=== PATIENT | male | born 1985 | race Caucasian/White ===

== ENCOUNTER → 2017-06-13 | Outpatient (REF) | payer MEDICARE ==
[2017-06-13 19:05] LABS: ALBUMIN 4.1 GM/DL (3.2-5.2); ALBUMIN/GLOBULIN RATIO 0.95 (1.00-1.93); ALKALINE PHOSPHATASE 121 U/L (45-117); ALT/SGPT 41 U/L (12-78); ANION GAP 7 MEQ/L (8-16); AST/SGOT 18 U/L (15-37); BASO % 0.5 % (0.0-1.0); BILIRUBIN,TOTAL 0.4 MG/DL (0.2-1.0); BLOOD UREA NITROGEN 12 MG/DL (7-18); CALCIUM LEVEL 9.3 MG/DL (8.5-10.1); CARBON DIOXIDE LEVEL 28 MEQ/L (21-32); CHLORIDE LEVEL 102 MEQ/L (98-107); CREATININE FOR GFR 0.74 MG/DL (0.70-1.30); EOS # 0.1 K/mm3 (0.0-0.50); EOS % 1.1 % (0.0-3.0); GLOMERULAR FILTRATION RATE > 60.0 (>60); GLUCOSE, FASTING 104 MG/DL (70-105); LARGE UNSTAINED CELL # 0.1 K/mm3 (0.0-0.4); LARGE UNSTAINED CELL % 1.3 % (0.0-4.0); LYMPH # 2.3 K/mm3 (1.5-4.5); MEAN CORPUSCULAR HEMOGLOBIN 32.2 pg (27.0-33.0); MEAN CORPUSCULAR HGB CONC 34.9 g/dl (32.0-36.5); MEAN CORPUSCULAR VOLUME 92.4 fl (80.0-96.0); MONO # 0.5 K/mm3 (0.0-0.8); NEUTROPHILS # 4.7 K/mm3 (1.8-7.7); NEUTROPHILS % 62.1 % (36.0-66.0); PLATELET COUNT, AUTOMATED 315 k/mm3 (150-450); POTASSIUM SERUM 4.5 MEQ/L (3.5-5.1); RED CELL DISTRIBUTION WIDTH 12.1 % (11.5-14.5); SODIUM LEVEL 137 MEQ/L (136-145); TOTAL PROTEIN 8.4 GM/DL (6.4-8.2); WHITE BLOOD COUNT 7.6 K/mm3 (4.0-10.0)
== END ==
LOC: M SFHCCAPE 07:05 → M LABNEURO 07:05
PROVIDERS: ATTEND Psychiatry & Neurology Neurology
DX: R56.9 Unspecified convulsions (principal); Z51.81 Encounter for therapeutic drug level monitoring; Z79.899 Other long term (current) drug therapy

== ENCOUNTER → 2017-12-19 | Outpatient (REF) | payer MEDICARE, MEDICAID ==
[2017-12-19 19:05] LABS: ALBUMIN 4.4 GM/DL (3.2-5.2); ALBUMIN/GLOBULIN RATIO 1.07 (1.00-1.93); ALKALINE PHOSPHATASE 107 U/L (45-117); ALT/SGPT 41 U/L (12-78); ANION GAP 6 MEQ/L (8-16); AST/SGOT 15 U/L (7-37); BILIRUBIN,TOTAL 0.2 MG/DL (0.2-1.0); BLOOD UREA NITROGEN 12 MG/DL (7-18); CARBON DIOXIDE LEVEL 30 MEQ/L (21-32); CHLORIDE LEVEL 102 MEQ/L (98-107); CREATININE FOR GFR 0.71 MG/DL (0.70-1.30); GLOMERULAR FILTRATION RATE > 60.0 (>60); GLUCOSE, FASTING 102 MG/DL (70-100); PHENYTOIN (DILANTIN) 11.1 UG/ML (10.0-20.0); POTASSIUM SERUM 4.3 MEQ/L (3.5-5.1); SODIUM LEVEL 138 MEQ/L (136-145); TOTAL PROTEIN 8.5 GM/DL (6.4-8.2)
[2017-12-19 19:22] LABS: BASO % 0.4 % (0.0-1.0); EOS # 0.1 10^3/uL (0.0-0.50); EOS % 1.2 % (0.0-3.0); HEMATOCRIT 46.8 % (42.0-52.0); HEMOGLOBIN 15.7 g/dl (14.0-18.0); IMMATURE GRANULOCYTE % 0.2 % (0-3.0); LYMPH # 3.1 10^3/uL (1.5-4.5); MEAN CORPUSCULAR HEMOGLOBIN 31.4 pg (27.0-33.0); MEAN CORPUSCULAR HGB CONC 33.5 g/dl (32.0-36.5); MEAN CORPUSCULAR VOLUME 93.6 fl (80.0-96.0); MONO # 0.9 10^3/uL (0.0-0.8); MONO % 10.4 % (0.0-5.0); NEUTROPHILS # 4.2 10^3/uL (1.8-7.7); NEUTROPHILS % 50.8 % (36.0-66.0); PLATELET COUNT, AUTOMATED 313 10^3/uL (150-450); RED CELL DISTRIBUTION WIDTH 11.8 % (11.5-14.5); WHITE BLOOD COUNT 8.3 10^3/uL (4.0-10.0)
[2017-12-23 00:07] LABS: LEVETIRACETAM (KEPPRA) 26.2 ug/mL (10.0-40.0)
== END ==
LOC: M LABNEURO 13:41
DX: R56.9 Unspecified convulsions (principal)
CPT/HCPCS: 80185

== ENCOUNTER → 2018-07-20 | Outpatient (REF) | payer MEDICARE ==
[2018-07-20 16:43] LABS: BASO % 0.4 % (0.0-1.0); EOS # 0.1 10^3/uL (0.0-0.50); EOS % 1.1 % (0.0-3.0); HEMATOCRIT 46.6 % (42.0-52.0); HEMOGLOBIN 15.7 g/dl (13.5-17.5); IMMATURE GRANULOCYTE % 0.3 % (0-3.0); LYMPH # 2.8 10^3/uL (1.5-4.5); LYMPH % 34.4 % (24.0-44.0); MEAN CORPUSCULAR HEMOGLOBIN 31.5 pg (27.0-33.0); MEAN CORPUSCULAR HGB CONC 33.7 g/dl (32.0-36.5); MEAN CORPUSCULAR VOLUME 93.6 fl (80.0-96.0); MONO # 0.9 10^3/uL (0.0-0.8); MONO % 10.9 % (0.0-5.0); NEUTROPHILS # 4.2 10^3/uL (1.8-7.7); NEUTROPHILS % 52.9 % (36.0-66.0); PLATELET COUNT, AUTOMATED 315 10^3/uL (150-450); RED BLOOD COUNT 4.98 10^6/uL (4.30-6.10); RED CELL DISTRIBUTION WIDTH 11.6 % (11.5-14.5)
[2018-07-20 16:50] LABS: ALBUMIN 4.4 GM/DL (3.2-5.2); ALKALINE PHOSPHATASE 129 U/L (45-117); ALT/SGPT 54 U/L (12-78); ANION GAP 6 MEQ/L (8-16); AST/SGOT 22 U/L (7-37); BILIRUBIN,TOTAL 0.2 MG/DL (0.2-1.0); BLOOD UREA NITROGEN 8 MG/DL (7-18); CALCIUM LEVEL 9.3 MG/DL (8.5-10.1); CARBON DIOXIDE LEVEL 30 MEQ/L (21-32); CHLORIDE LEVEL 102 MEQ/L (98-107); CREATININE FOR GFR 0.68 MG/DL (0.70-1.30); GLOMERULAR FILTRATION RATE > 60.0 (>60); GLUCOSE, FASTING 84 MG/DL (70-100); PHENYTOIN (DILANTIN) 11.7 UG/ML (10.0-20.0); POTASSIUM SERUM 4.7 MEQ/L (3.5-5.1); SODIUM LEVEL 138 MEQ/L (136-145); TOTAL PROTEIN 8.8 GM/DL (6.4-8.2)
[2018-07-24 00:07] LABS: LEVETIRACETAM (KEPPRA) 26.2 ug/mL (10.0-40.0)
== END ==
LOC: M SFHCCLAY 12:31
DX: G40.909 Epilepsy, unspecified, not intractable, without status epilepticus (principal)
CPT/HCPCS: 80185

== ENCOUNTER → 2018-11-08 | Outpatient (REF) | payer MEDICARE ==
[2018-11-08 18:19] LABS: BASO % 0.3 % (0.0-1.0); EOS # 0.1 10^3/uL (0.0-0.50); EOS % 1.5 % (0.0-3.0); HEMATOCRIT 45.9 % (42.0-52.0); HEMOGLOBIN 15.3 g/dl (13.5-17.5); LYMPH # 2.5 10^3/uL (1.5-4.5); LYMPH % 36.2 % (24.0-44.0); MEAN CORPUSCULAR HEMOGLOBIN 31.8 pg (27.0-33.0); MEAN CORPUSCULAR HGB CONC 33.3 g/dl (32.0-36.5); MEAN CORPUSCULAR VOLUME 95.4 fl (80.0-96.0); MONO # 0.5 10^3/uL (0.0-0.8); MONO % 7.6 % (0.0-5.0); NEUTROPHILS # 3.7 10^3/uL (1.8-7.7); PLATELET COUNT, AUTOMATED 275 10^3/uL (150-450); RED BLOOD COUNT 4.81 10^6/uL (4.30-6.10); WHITE BLOOD COUNT 6.8 10^3/uL (4.0-10.0)
== END ==
LOC: M LABDRWCV 16:43
PROVIDERS: ATTEND Physician Assistant Medical
DX: R56.9 Unspecified convulsions (principal); Z51.81 Encounter for therapeutic drug level monitoring

== ENCOUNTER → 2019-06-12 | Outpatient (REF) | payer MEDICARE, MEDICAID | LOC: M LABDRWCV 16:17 | PROVIDERS: ATTEND Physician Assistant Medical | DX: G40.909 Epilepsy, unspecified, not intractable, without status epilepticus (principal); Z51.81 Encounter for therapeutic drug level monitoring ==

== ENCOUNTER → 2019-07-02 | Outpatient (REF) | payer MEDICARE, MEDICAID | LOC: M LABDRWCV 16:10 | PROVIDERS: ATTEND Physician Assistant Medical | DX: G40.909 Epilepsy, unspecified, not intractable, without status epilepticus (principal) ==

== ENCOUNTER → 2019-08-06 | Outpatient (REF) | payer MEDICARE, MEDICAID | LOC: M LABDRWCV 16:16 | PROVIDERS: ATTEND Physician Assistant Medical | DX: G40.909 Epilepsy, unspecified, not intractable, without status epilepticus (principal); Z51.81 Encounter for therapeutic drug level monitoring ==

== ENCOUNTER → 2019-11-27 | Outpatient (REF) | payer MEDICARE, MEDICAID | LOC: M LABDRWCV 18:12 → M LAB REF 18:12 | PROVIDERS: ATTEND Physician Assistant Medical | DX: R56.9 Unspecified convulsions (principal); Z51.81 Encounter for therapeutic drug level monitoring ==

== ENCOUNTER 2020-04-28 11:34 | Emergency (ER) | payer MEDICARE, MEDICAID ==
[~2020-04-28] VITALS: Ht 165.1 cm; Wt 84.8 kg
[2020-04-28] MEDS ORDERED: NS 1,000 ML IV SCH (12:09)
[2020-04-28 12:27] LABS: PHENYTOIN (DILANTIN) 12.1 UG/ML (10.0-20.0)
[2020-04-28] MEDS ORDERED: PHEN100C PO (12:32)
[2020-04-28] MEDS ORDERED: KEPP750T3 PO (12:32)
[2020-04-28] MEDS ORDERED: levETIRAcetam INJection 1,000 MG in D5W 100 ML IV ONE (13:15)
[2020-04-28 13:28] LABS: BASO % 0.2 % (0.0-1.0); EOS % 0.2 % (0.0-3.0); HEMATOCRIT 49.5 % (42.0-52.0); HEMOGLOBIN 16.6 g/dl (13.5-17.5); LYMPH % 16.7 % (24.0-44.0); MEAN CORPUSCULAR HEMOGLOBIN 31.1 pg (27.0-33.0); MEAN CORPUSCULAR HGB CONC 33.5 g/dl (32.0-36.5); MEAN CORPUSCULAR VOLUME 92.7 fl (80.0-96.0); MONO # 0.8 10^3/uL (0.0-0.8); MONO % 6.7 % (0.0-5.0); NEUTROPHILS # 9.1 10^3/uL (1.5-8.5); NEUTROPHILS % 74.7 % (36.0-66.0); PLATELET COUNT, AUTOMATED 318 10^3/uL (150-450); RED BLOOD COUNT 5.34 10^6/uL (4.30-6.10); WHITE BLOOD COUNT 12.2 10^3/uL (4.0-10.0)
[2020-04-28] MEDS ORDERED: PHENYTOIN ER 100 MG CAP PO ONE (13:30)
[2020-04-28 13:47] LABS: ALBUMIN 4.3 GM/DL (3.2-5.2); ALT/SGPT 50 U/L (12-78); BILIRUBIN,DIRECT 0.1 MG/DL (0.0-0.2); BILIRUBIN,TOTAL 0.2 MG/DL (0.2-1.0); BLOOD UREA NITROGEN 13 MG/DL (7-18); CALCIUM LEVEL 9.9 MG/DL (8.5-10.1); CARBON DIOXIDE LEVEL 21 MEQ/L (21-32); CHLORIDE LEVEL 103 MEQ/L (98-107); CREATININE FOR GFR 0.98 MG/DL (0.70-1.30); GLOMERULAR FILTRATION RATE > 60.0 (>60); GLUCOSE, FASTING 158 MG/DL (70-100); PHOSPHORUS LEVEL 2.8 MG/DL (2.5-4.9); POTASSIUM SERUM 4.4 MEQ/L (3.5-5.1); SODIUM LEVEL 138 MEQ/L (136-145); TOTAL PROTEIN 9.1 GM/DL (6.4-8.2)
--- NOTE | 2020-04-28 14:51 | REP ---
REASON: Status post seizure. COMPARISON: None. FINDINGS: The superior mediastinal structures are midline. The cardiac silhouette is unremarkable in size, shape, and position. The diaphragmatic surfaces of the lungs are regular, and the costophrenic angles are clear. The pulmonary asif are clear. The imaged osseous structures are intact. IMPRESSION: There is no acute cardiopulmonary disease. Electronically Signed by Luis Ahuja DO 04/28/2020 04:06 P
[2020-04-28 15:22] LABS: AMPHETAMINES LEVEL URINE NEGATIVE (NEGATIVE); BARBITURATES URINE NEGATIVE (NEGATIVE); BENZODIAZEPINES URINE NEGATIVE (NEGATIVE); CANNABINOIDS URINE NEGATIVE (NEGATIVE); COCAINE METABOLITE URINE NEGATIVE (NEGATIVE); METHADONE URINE NEGATIVE (NEGATIVE); OPIATES URINE NEGATIVE (NEGATIVE); PHENCYCLIDINE URINE NEGATIVE (NEGATIVE)
[2020-04-28 15:45] VITALS: BP 115/76
--- NOTE | 2020-04-28 20:59 | ECGEPIP ---
[facility] - ED Test Date: 2020-04-28 Pat Name: ANNAMARIE JARAMILLO Department: Room: - Gender: Male Information Management Officer: shaylee : 1985 Requested By: EPHRAIM Hernández Order Number: [id number] Reading MD: Anisa Harrison Measurements Intervals [place] Rate: 114 P: 26 MA: 175 QRS: -7 QRSD: 145 T: 172 QT: 355 QTc: 489 Interpretive Statements SINUS TACHYCARDIA WITH OCCASIONAL SUPRAVENTRICULAR PREMATURE COMPLEXES POSSIBLE LEFT ATRIAL ENLARGEMENT LEFT BUNDLE BRANCH BLOCK NO PRIOR Electronically Signed on 04-28-2020 20:58:58 EDT by Anisa Harrison
== END 2020-04-28 15:57 | disposition home or self-care (01) ==
LOC: M ED 11:34 → EDBD 11:34 → M ED 15:57
DX: G40.909 Epilepsy, unspecified, not intractable, without status epilepticus (principal); I44.7 Left bundle-branch block, unspecified; Z79.899 Other long term (current) drug therapy; Z88.0 Allergy status to penicillin
CPT/HCPCS: 36415; 71046; 80047; 80048; 80076; 80180; 80185; 80307; 81001; 83735; 84100; 85025; 93005; 94760; 96361; 96365; 99285; J1953

== ENCOUNTER → 2020-05-11 | Outpatient (REF) | payer MEDICARE, MEDICAID ==
[~2020-05-11] MED LIST: KEPP750T3 PO; PHEN100C PO
== END ==
LOC: M LABDRAWC 12:28
PROVIDERS: ATTEND Physician Assistant Medical
DX: G40.89 Other seizures (principal)

== ENCOUNTER → 2020-07-06 | Outpatient (REF) | payer MEDICARE, MEDICAID | LOC: M LABDRAWC 16:13 | PROVIDERS: ATTEND Physician Assistant Medical | DX: G40.89 Other seizures (principal) ==

== ENCOUNTER → 2020-10-23 | Outpatient (REF) | payer MEDICARE, MEDICAID | LOC: M LABDRAWC 15:42 | PROVIDERS: ATTEND Physician Assistant Medical | DX: R56.9 Unspecified convulsions (principal) ==

== ENCOUNTER → 2020-11-04 | Outpatient (CLI) | payer SELFPAY | LOC: M LABSMTC 10:53 | PROVIDERS: ATTEND Pediatrics | DX: Z20.822 Contact with and (suspected) exposure to COVID-19 (principal) ==

== ENCOUNTER → 2020-11-18 | Outpatient (REF) | payer MEDICARE, MEDICAID ==
[2020-11-18 16:39] LABS: BASO % 0.4 % (0.0-1.0); EOS # 0.1 10^3/uL (0.0-0.5); EOS % 0.8 % (0.0-3.0); HEMATOCRIT 47.6 % (42.0-52.0); HEMOGLOBIN 15.6 g/dl (13.5-17.5); LYMPH # 2.8 10^3/uL (1.5-5.0); LYMPH % 30.6 % (24.0-44.0); MEAN CORPUSCULAR HEMOGLOBIN 30.8 pg (27.0-33.0); MEAN CORPUSCULAR HGB CONC 32.8 g/dl (32.0-36.5); MEAN CORPUSCULAR VOLUME 94.1 fl (80.0-96.0); MONO # 0.9 10^3/uL (0.0-0.8); MONO % 9.5 % (0.0-5.0); NEUTROPHILS # 5.3 10^3/uL (1.5-8.5); NEUTROPHILS % 58.5 % (36.0-66.0); PLATELET COUNT, AUTOMATED 292 10^3/uL (150-450); RED BLOOD COUNT 5.06 10^6/uL (4.30-6.10); WHITE BLOOD COUNT 9.1 10^3/uL (4.0-10.0)
[2020-11-18 17:27] LABS: ALBUMIN 4.2 GM/DL (3.2-5.2); ALT/SGPT 49 U/L (12-78); BILIRUBIN,TOTAL 0.3 MG/DL (0.2-1.0); BLOOD UREA NITROGEN 13 MG/DL (7-18); CALCIUM LEVEL 9.5 MG/DL (8.5-10.1); CARBON DIOXIDE LEVEL 30 MEQ/L (21-32); CHLORIDE LEVEL 101 MEQ/L (98-107); CHOLESTEROL LEVEL 206 MG/DL (<200); CHOLESTEROL RISK RATIO 3.551 (<5); CREATININE FOR GFR 0.73 MG/DL (0.70-1.30); FREE T4 0.69 NG/DL (0.76-1.46); GLOMERULAR FILTRATION RATE > 60.0 (>60); GLUCOSE, FASTING 131 MG/DL (70-100); HDL CHOLESTEROL 58 MG/DL (>40); LDL CHOLESTEROL 102 MG/DL (<100); NON-HDL-C 148 MG/DL; POTASSIUM SERUM 4.3 MEQ/L (3.5-5.1); SODIUM LEVEL 136 MEQ/L (136-145); TOTAL PROTEIN 8.5 GM/DL (6.4-8.2); TRIGLYCERIDES LEVEL 229 MG/DL (<150)
== END ==
LOC: M SFHCCLAY 11:21
PROVIDERS: ATTEND Nurse Practitioner Family
DX: F84.0 Autistic disorder (principal); G40.909 Epilepsy, unspecified, not intractable, without status epilepticus; Z13.220 Encounter for screening for lipoid disorders; Z79.899 Other long term (current) drug therapy
CPT/HCPCS: 36415; 80053; 80061; 80185; 84439; 84443; 85025; G0463

== ENCOUNTER → 2020-11-18 | Outpatient (REF) | payer MEDICARE, MEDICAID | LOC: M LABDRAWC 15:36 | PROVIDERS: ATTEND Physician Assistant Medical | DX: R56.9 Unspecified convulsions (principal); Z51.81 Encounter for therapeutic drug level monitoring ==

== ENCOUNTER → 2021-04-09 | Outpatient (REF) | payer MEDICARE, MEDICAID ==
[2021-04-09 16:23] LABS: BASO % 0.3 % (0.0-1.0); EOS # 0.1 10^3/uL (0.0-0.5); EOS % 0.6 % (0.0-3.0); HEMATOCRIT 45.7 % (42.0-52.0); HEMOGLOBIN 14.9 g/dl (13.5-17.5); LYMPH # 2.6 10^3/uL (1.5-5.0); LYMPH % 26.1 % (24.0-44.0); MEAN CORPUSCULAR HEMOGLOBIN 31.2 pg (27.0-33.0); MEAN CORPUSCULAR HGB CONC 32.6 g/dl (32.0-36.5); MEAN CORPUSCULAR VOLUME 95.6 fl (80.0-96.0); MONO # 0.8 10^3/uL (0.0-0.8); NEUTROPHILS # 6.6 10^3/uL (1.5-8.5); NEUTROPHILS % 64.7 % (36.0-66.0); PLATELET COUNT, AUTOMATED 296 10^3/uL (150-450); RED BLOOD COUNT 4.78 10^6/uL (4.30-6.10); WHITE BLOOD COUNT 10.1 10^3/uL (4.0-10.0)
[2021-04-09 16:59] LABS: ALBUMIN 3.9 GM/DL (3.2-5.2); ALT/SGPT 40 U/L (12-78); BILIRUBIN,TOTAL 0.3 MG/DL (0.2-1.0); BLOOD UREA NITROGEN 11 MG/DL (7-18); CALCIUM LEVEL 8.9 MG/DL (8.5-10.1); CARBON DIOXIDE LEVEL 31 MEQ/L (21-32); CHLORIDE LEVEL 102 MEQ/L (98-107); CREATININE FOR GFR 0.58 MG/DL (0.70-1.30); GLOMERULAR FILTRATION RATE > 60.0 (>60); GLUCOSE, FASTING 146 MG/DL (70-100); PHENYTOIN (DILANTIN) 11.8 UG/ML (10.0-20.0); POTASSIUM SERUM 4.1 MEQ/L (3.5-5.1); SODIUM LEVEL 137 MEQ/L (136-145); TOTAL PROTEIN 8.1 GM/DL (6.4-8.2)
== END ==
LOC: M LABDRAWC 16:04
PROVIDERS: ATTEND Physician Assistant Medical
DX: G40.909 Epilepsy, unspecified, not intractable, without status epilepticus (principal); Z79.899 Other long term (current) drug therapy

== ENCOUNTER → 2021-06-11 | Outpatient (REF) | payer MEDICARE, MEDICAID | LOC: M LABDRAWC 11:36 | PROVIDERS: ATTEND Physician Assistant Medical | DX: G40.909 Epilepsy, unspecified, not intractable, without status epilepticus (principal) ==

== ENCOUNTER 2021-08-04 14:12 | Emergency (ER) | payer MEDICARE, MEDICAID ==
[~2021-08-04] VITALS: Ht 165.1 cm; Wt 84.8 kg
--- OUTSIDE RECORDS SUMMARY | 2021-08-04 14:19 | CCD | Continuity of Care Document ---
Author Author Bishnu SHIELDS P.A.-C. Organization Unknown Address [address] [place] [address] Phone [phone] Care Team Providers Care Vfx Artist Name Role Phone Jan Nails M.D. AUTM [phone] Catherine Sweeney-C AUTM Problems Active Problems Provider Date Seizure Camacho Donaldson M.D. Onset: 02/18/2016 Social History Type Date Description Comments Sex Unknown Tobacco Use Start: Unknown Patient has never smoked Allergies, Adverse Reactions, Alerts Active Allergies Criticality Reaction | Severity Comments Date Penicillin Unable to assess criticality 02/18/2016 Medications Active Medications SIG Qnty Indications Ordering Provide r Date Keppra XR 750mg Tablets ER 24HR take two tablets by mouth twice a day 28maynor Velázquez M.D. Phenytoin Sodium Extended 100mg Ca psules 3 by mouth twice a day 42little Velázquez M.D. 04/25/2021 Phenytoin Sodium Extended 100mg Ca psules 3 caps po bid, new directions 180little Velázquez M.D. 09/2018 Keppra XR 750mg Tablets ER 24HR take two tablets by mouth twice a day 120maynor Velázquez M.D. Immunizations Description No Information Available Vital Signs Date Vital Result Comment 04/15/2021 5:42am BP Systolic 110 mmHg BP Diastolic 80 mmHg Heart Rate 68 /min Respiratory Rate 16 /min 03/29/2021 6:22am BP Systolic 110 mmHg BP Diastolic 60 mmHg Heart Rate 64 /min Respiratory Rate 16 /min Results Test Acquired Date Facility Test Result H/L Range Note Laboratory test finding 06/11/2021 [facility] Phenytoin (Dilantin) 18.8 UG/ML Normal 10.0-20.0 Levetiracetam (Keppra) 26.1 ug/mL Normal 10.0-40.0 1 CBC With Differential 04/09/2021 [facility] White Blood Count 10.1 10 High 4.0-10.0 Red Blood Count 4.78 10 Normal 4.30-6.10 Hemoglobin 14.9 g/dL Normal 13.5-17.5 Hematocrit 45.7 % Normal 42.0-52.0 Mean Corpuscular Volume 95.6 fl Normal 80.0-96.0 Mean Corpuscular Hemoglobin 31.2 pg Normal 27.0-33.0 Mean Corpuscular HGB Conc 32.6 g/dL Normal 32.0-36.5 Red Cell Distribution Width 11.7 % Normal 11.5-14.5 Platelet Count, Automated 296 10 Normal 150-450 Neutrophils % 64.7 % Normal 36.0-66.0 Lymph % 26.1 % Normal 24.0-44.0 Cochran % 8.0 % Normal 2.0-8.0 Eos % 0.6 % Normal 0.0-3.0 Baso % 0.3 % Normal 0.0-1.0 Immature Granulocyte % 0.3 % Normal 0-3.0 Nucleated Red Blood Cell % 0.0 % Normal 0-0 Neutrophils # 6.6 10 Normal 1.5-8.5 Lymph # 2.6 10 Normal 1.5-5.0 Cochran # 0.8 10 Normal 0.0-0.8 Eos # 0.1 10 Normal 0.0-0.5 Baso # 0.0 10 Normal 0.0-0.2 Comprehensive Metabolic Profil 04/09/2021 [facility] Glucose, Fasting 146 mg/dL High 70-100 Blood Urea Nitrogen 11 mg/dL Normal 7-18 Creatinine For GFR 0.58 mg/dL Low 0.70-1.30 Glomerular Filtration Rate > 60.0 Normal >60 2 Sodium Level 137 mEq/L Normal 136-145 Potassium Serum 4.1 mEq/L Normal 3.5-5.1 Chloride Level 102 mEq/L Normal 98-107 Carbon Dioxide Level 31 mEq/L Normal 21-32 Anion Gap 4 mEq/L Low 8-16 Calcium Level 8.9 mg/dL Normal 8.5-10.1 Ast/Sgot 20 U/L Normal 7-37 Alt/SGPT 40 U/L Normal 12-78 Alkaline Phosphatase 129 U/L High 45-117 Bilirubin,Total 0.3 mg/dL Normal 0.2-1.0 Total Protein 8.1 GM/DL Normal 6.4-8.2 Albumin 3.9 GM/DL Normal 3.2-5.2 Albumin/Globulin Ratio 0.9 Normal Laboratory test finding 04/09/2021 [facility] Phenytoin (Dilantin) 11.8 UG/ML Normal 10.0-20.0 1 This test was developed and its performance characteristics determined by [facility]. It has not been cleared or approved by the Food and Drug Administration. Performed at: [facility] [address] [id number] Health Care Attorney: Margaret Gomez MD, Phone: [phone] Units are mL/min/1.73 m2 Chronic Kidney Disease Staging per NKF: Stage I & II GFR >=60 Normal to Mildly Decreased Stage III GFR 30-59 Moderately Decreased Stage IV GFR 15-29 Severely Decreased Stage V GFR <15 Very Little GFR Left ESRD GFR <15 on [employer]UC[employer] Procedures Date Code Description Status 04/15/2021 94086 Office/Outpatient Established Mo d MDM 30-39 Min Completed 03/29/2021 52753 Office/Outpatient Established Mo d MDM 30-39 Min Completed 12/24/2020 29435 Phone Evaluation/Management Phys ician 11-20 Mins Completed Medical Devices Description No Information Available Encounters Type Date Location Provider Dx Diagnosis Office Visit 04/15/2021 2:45p Main office [place] Beata correa P.A.-C. G40.309 Gen idiopathic epilepsy, not intractable , w/o stat epi Office Visit 03/29/2021 1:45p Main office - [place] Beata correa P.A.-C. G40.309 Gen idiopathic epilepsy, not intractable , w/o stat epi F84.0 Autistic disorder Office Visit 12/24/2020 8:45a Main office - [place] Beata correa P.A.-C. 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 03/29/2021 F84.0 Autistic disorder Beata albert P.A.-C. 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 12/24/2020 F84.0 Autistic disorder Beata labert P.A.-C. Plan of Treatment Future Appointment(s):* 07/02/2021 11:45 am - Beata Shields P.A.-C. 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 One of his doses will be adjusted. I will contact his mother when I receive the lab report. Repeat serum levels a week afterwards. * Follow up:* Keep routine follow up. Functional Status Description No Information Available Mental Status Description No Information Available Referrals Description No Information Available"
--- OUTSIDE RECORDS SUMMARY | 2021-08-04 14:19 | CCD ---
Author Author [facility] Organization [facility] Address Unknown Phone Unavailable Care Team Providers Care Advanced Practice Psychiatric Nurse Name Role Phone ManvilleMark ramirez Unavailable PROBLEMS Type Condition ICD9-CM Code [id number] Code Onset Dates Condition S tatus W/U Status Risk SNOMED Code Notes Problem Autism F84.0 Active confirmed 029253056 Problem Epilepsy G40.909 Active confirmed 91023709 ALLERGIES Allergen (clinical drug ingredient) Drug/Non Drug Allergy do cumented on EMR Reaction Allergy Type Onset Date Status PCN RASH Non Drug Allergy Active ENCOUNTERS from 1985 to 2021-05-07 Encounter Location Date Provider Diagnosis [phone] [place] [address] Apr, Mark Lerma Cough R05 and Viral URI J06.9 IMMUNIZATIONS Vaccine Route Administration Date Status Influenza 18 yrs & older Flublok IM Intramuscular Aug 08, 2019 Administered Influenza 18 yrs & older Flublok IM Intramuscular Jul 16, 2018 Administered Influenza 6mo & up Fluzone IM Intramuscular Aug 29, 2017 Admi nistered Influenza Pharmacy Given Unknown Jul 18, 2020 Adminis tered Influenza 6mo & up Fluzone IM Intramuscular Sep 12, 2016 Admi nistered Influenza 6mo & up Fluzone IM Intramuscular Aug 04, 2015 Admi nistered Influenza 6mo & up Fluzone IM Intramuscular Oct 01, 2014 Admi nistered Influenza 6mo & up Fluzone IM Intramuscular December 17, 2013 Admi nistered Influenza 6mo & up Fluzone IM Intramuscular Aug 07, 2012 Admi nistered SOCIAL HISTORY Tobacco Use: Social History Observation Description Date Details (start date - stop date) Never Smoker Sex Assigned At : Social History Observation Description Sex Assigned At Unknown Education: Question Answer Notes Level of Education: Finished High School Audit Question Answer Notes Total Score: 0 Interpretation: Alcohol Education Language: Question Answer Notes Languages spoken: Czech Protestant: Question Answer Notes Protestant 13 Confucianism Sexual Hx: Question Answer Notes Had sex in the last 12 months (vaginal, oral, or anal)? No Have you ever had an STD? No Drug and Alcohol Question Answer Notes Total Score: 0 Interpretation: No problems reported Alcohol Screening: Question Answer Notes Did you have a drink containing alcohol in the past year? No Points 0 Interpretation Negative BMI Care Goal Follow-Up Question Answer Notes Above Normal BMI Follow-Up Dietary management educatio n, guidance, and counseling Tobacco Use: Question Answer Notes Are you a: never smoker REASON FOR REFERRAL No Information VITAL SIGNS Weight 192 lbs Apr, Height 5'7" in Apr, BMI 30.07 kg/m2 Apr, Heart Rate 90 /min Apr, Respiratory Rate 18 /min Apr, Temperature 96.5 degrees Fahrenheit Apr, Oximetry 97%RA Apr, Blood pressure systolic 114 mm Hg Apr, Blood pressure diastolic 77 mm Hg Apr, MEDICATIONS Medication SIG (Take, Route, Frequency, Duration) Notes Start Da te End Date Status Multi-Vitamin 1 tablet Orally daily Active Robitussin DM Sugar Free 100-10 MG/5ML 10 ml as needed Orally every 4 hrs Not-Taking Yaquelin 60 MG as directed Orally once daily as needed Not-Taking Keppra XR 750 MG 2 tablets Orally q12h KAREY May, Active Phenytoin Sodium Extended 100 MG 2 capsules Orally two in am 3 at [facility] Active Benadryl Allergy 25 MG 1 tablet as needed Orally every 6 hrs Not-Taking Ofloxacin 0.3 % 10 drops into affected ear Otic Once a day for 7 day(s) Aug, Not-Taking PROCEDURES No Information RESULTS Component Value Reference Range ADELITA COVID AG (Point of Care) Reviewed date:05/03/2021 14:07:18 Interpretation:Negative Performing Lab:[facility], [place] INTERFACE [address] [address] , ,[place] [address] ADELITA COVID ANTIGEN NEGATIVE NEGATIVE REASON FOR VISIT cough, runny nose MEDICAL (GENERAL) HISTORY Type Description Date Medical History Autism Medical History Seizures Medical History hearing deficit right ear Surgical History circumcision Goals Section No Information Health Concerns No Information MEDICAL EQUIPMENT No Information MENTAL STATUS No Information FUNCTIONAL STATUS No Information ASSESSMENTS Encounter Date Diagnosis Assessment Notes Treatment Notes Treatm ent Clinical Notes Apr, Cough (ICD-10 - R05) Apr, Viral URI (ICD-10 - J06.9) Kalyan alexis have a viral infection at this time. Unfortunately, antibiotics do not help with viral infections. They are usually benign and self-limited infections, so treatment is based on symptomatic relief. Rest and drink clear fluids throughout the day. You may use humidification and saline irrigation to help with the congestion. You may also take motrin or tylenol as needed for pain or fever. You are considered to be contagious until you have been fever free for more than 24 hours. Viral infections sometimes may last 10-14 days before resolving completely. However, if symptoms are worsening any time after 5-7 days of illness, especially if you develop a fever or difficulty breathing; please be reevaluated as soon as possible. If you do not have any cardiac or blood pressure problems you may also consider using eeou-hyq-jdincmw decongestant (i.e. Sudafed) medication as needed. Apr, Other Medication/s di scussed with patient and questions answered. RTC as needed for worsening or unresolved symptoms. Patient states understanding and agreement with this plan. PLAN OF TREATMENT Treatment Notes Assessment Notes Clinical Notes Viral URI Kalyan alexis have a viral infe ction at this time. Unfortunately, antibiotics do not help with viral infections. They are usually benign and self- limited infections, so treatment is based on symptomatic relief. Rest and drink clear fluids throughout the day. You may use humidification and saline irrigation to help with the congestion. You may also take motrin or tylenol as needed for pain or fever. You are considered to be contagious until you have been fever free for more than 24 hours. Viral infections sometimes may last 10- 14 days before resolving completely. However, if symptoms are worsening any time after 5-7 days of illness, especially if you develop a fever or difficulty breathing; please be reevaluated as soon as possible. If you do not have any cardiac or blood pressure problems you may also consider using bhnu-frj-rbpigrd decongestant (i.e. Sudafed) medication as needed. Next Appt Details 2 - 3 Days unless improving Reason: Provider Name:Edwina Soaniya, 11-22 11:00:00 AM, Sara [place] , , [place], [address], Insurance Providers Payer Name Payer Address Payer Phone Insured Name Patient Relati onship to Insured Coverage Start Date Coverage End Date MEDICAID [employer] [address] [facility] [address] ANNAMARIE JARAMILLO self MEDICARE Part A and B [address] [facility] [id number] [phone] ANNAMARIE JARAMILLO self
--- OUTSIDE RECORDS SUMMARY | 2021-08-04 14:20 | CCD ---
Author Author [facility] Organization [facility] Address Unknown Phone Unavailable Care Team Providers Care Bridge Operator Name Role Phone Trickey, J Beata PA Unavailable Unavailable Trickey, J Beata PA Unavailable Unavailable Trickey, J Beata PA Unavailable Unavailable Trickey, J Beata PA Unavailable Unavailable Trickey, J Beata PA Unavailable Unavailable Trickey, J Beata PA Unavailable Unavailable Trickey, J Beata PA Unavailable Unavailable Trickey, J Beata PA Unavailable Unavailable Trickey, J Beata PA Unavailable Unavailable Trickey, J Beata PA Unavailable Unavailable Trickey, J Beata PA Unavailable Unavailable Trickey, J Beata PA Unavailable Unavailable Trickey, J Beata PA Unavailable Unavailable Trickey, J Beata PA Unavailable Unavailable Trickey, J Beata PA Unavailable Unavailable Trickey, J Beata PA Unavailable Unavailable Trickey, J Beata PA Unavailable Unavailable Trickey, J Beata PA Unavailable Unavailable Trickey, J Beata PA Unavailable Unavailable Trickey, J Beata PA Unavailable Unavailable Trickey, J Beata PA Unavailable Unavailable Trickey, J Beata PA Unavailable Unavailable Trickey, J Beata PA Unavailable Unavailable Trickey, J Beata PA Unavailable Unavailable Trickey, J Beata PA Unavailable Unavailable Trickey, J Beata PA Unavailable Unavailable Trickey, J Beata PA Unavailable Unavailable Trickey, J Beata PA Unavailable Unavailable Trickey, J Beata PA Unavailable Unavailable Trickey, J Beata PA Unavailable Unavailable Trickey, J Beata PA Unavailable Unavailable Trickey, J Beata PA Unavailable Unavailable Trickey, J Beata PA Unavailable Unavailable Trickey, J Beata PA Unavailable Unavailable Trickey, J Beata PA Unavailable Unavailable Trickey, J Beata PA Unavailable Unavailable Trickey, J Beata PA Unavailable Unavailable Trickey, J Beata PA Unavailable Unavailable Trickey, J Beata PA Unavailable Unavailable Trickey, J Beata PA Unavailable Unavailable Trickey, J Beata PA Unavailable Unavailable Trickey, J Beata PA Unavailable Unavailable Trickey, J Beata PA Unavailable Unavailable Trickey, J Beata PA Unavailable Unavailable Trickey, J Beata PA Unavailable Unavailable Trickey, J Beata PA Unavailable Unavailable Trickey, J Beata PA Unavailable Unavailable Trickey, J Beata PA Unavailable Unavailable Trickey, J Beata PA Unavailable Unavailable Re-disclosure Warning The records that you are about to access may contain information from federally-assisted alcohol or drug abuse programs. If such information is present, then the following federally mandated warning applies: This information has been disclosed to you from records protected by federal confidentiality rules (42 CFR part 2). The federal rules prohibit you from making any further disclosure of this information unless further disclosure is expressly permitted by the written consent of the person to whom it pertains or as otherwise permitted by 42 CFR part 2. A general authorization for the release of medical or other information is NOT sufficient for this purpose. The Federal rules restrict any use of the information to criminally investigate or prosecute any alcohol or drug abuse patient.The records that you are about to access may contain highly sensitive health information, the redisclosure of which is protected by Article 27-F of the [facility] Public Health law. If you continue you may have access to information: Regarding HIV / AIDS; Provided by facilities licensed or operated by the [facility] Office of Mental Health; or Provided by the [facility] Office for People With Developmental Disabilities. If such information is present, then the following [facility] mandated warning applies: This information has been disclosed to you from confidential records which are protected by state law. State law prohibits you from making any further disclosure of this information without the specific written consent of the person to whom it pertains, or as otherwise permitted by law. Any unauthorized further disclosure in violation of state law may result in a fine or senior care sentence or both. A general authorization for the release of medical or other information is NOT sufficient authorization for further disc losure. Encounters Encounter Providers Location Date Indications Data Source(s ) Out[place] [address] [facility] [address] 05/03/2021 12:00:00 AM EDT eCW1 ([facility]) Unknown [address] [facility] [place] [address] 05/03/2021 12:00:00 AM EDT eCW1 ([facility]) Unknown [address] [facility] [address] 04/29/2021 12:00:00 AM EDT eCW1 ([facility]) Outpatient Attender: Beata PRO [facility] n 04/15/2021 02:45:00 PM EDT MEDENT ([facility] ) Outpatient Attender: Beata PRO [facility] n 03/29/2021 01:45:00 PM EDT [facility] ([facility] ) Unknown [address] [facility] [address] 02/10/2021 12:00:00 AM EDT eCW1 ([facility]) Office Visit Attender: Beata PRO [facility] n 12/24/2020 07:45:00 AM EST MED[facility] ([facility] ) Outpatient [address] [facility] [address] 12/22/2020 12:00:00 AM EST eCW1 ([facility]) Unknown [address] [facility] [address] 12/11/2020 12:00:00 AM EST eCW1 ([facility]) Unknown [address] [facility] [address] 12/02/2020 12:00:00 AM EST eCW1 ([facility]) Outpatient [address] [facility] [address] 11/18/2020 12:00:00 AM EST eCW1 ([facility]) Outpatient [address] [facility] [address] 08/24/2020 12:00:00 AM EST eCW1 ([facility]) Outpatient Attender: Beata PRO Main office - [facility] 08/04/2020 01:30:00 PM EDT MEDENT ([facility], ) Immunizations Vaccine Date Status Description Data Source(s) COVID-19 VACCINE Jeanne 01/18/2021 12:00:00 AM EDT completed [facility] Vaccine Series Complete: YESThis Data wa s Submitted to [facility] Via Guide. IIV3. This is one of two codes replacing CVX 15, which is being retired. 07/18/2020 03:52:00 PM EDT completed eCW1 ([facility]) IIV3. This is one of two codes replacing CVX 15, which is being retired. 07/18/2020 03:52:00 PM EDT completed eCW1 ([facility]) IIV3. This is one of two codes replacing CVX 15, which is being retired. 07/18/2020 03:52:00 PM EDT completed eCW1 ([facility]) IIV3. This is one of two codes replacing CVX 15, which is being retired. 07/18/2020 03:52:00 PM EDT completed eCW1 ([facility]) IIV3. This is one of two codes replacing CVX 15, which is being retired. 07/18/2020 03:52:00 PM EDT completed eCW1 ([facility]) IIV3. This is one of two codes replacing CVX 15, which is being retired. 07/18/2020 03:52:00 PM EDT completed eCW1 ([facility]) IIV3. This is one of two codes replacing CVX 15, which is being retired. 07/18/2020 03:52:00 PM EDT completed eCW1 ([facility]) IIV3. This is one of two codes replacing CVX 15, which is being retired. 07/18/2020 03:52:00 PM EDT completed eCW1 ([facility]) IIV3. This is one of two codes replacing CVX 15, which is being retired. 07/18/2020 03:52:00 PM EDT completed eCW1 ([facility]) INFLUENZA VIRUS VACCINE QUADRIVALENT 2019-21 (6 MOS AN D UP) 07/18/2020 12:00:00 AM EDT completed [facility] Medications Medication Brand Name Start Date Product Form Dose Route Admi nistrative Instructions Pharmacy Instructions Status Indications Reaction Description Data Source(s) 750 mg 05/28/2021 12:00:00 AM EDT tablet extended release 24 hr 120 TAKE TWO TABLETS BY MOUTH TWICE A DAY MAX=4TABS/DAY TAKE TWO TABLETS BY MOUTH TWICE A DAY MAX=4TABS/DAY SOLD: 05/28/2021 [facility] 750 mg 05/28/2021 12:00:00 AM EDT tablet extended release 24 hr 120 TAKE TWO TABLETS BY MOUTH TWICE A DAY MAX=4TABS/DAY TAKE TWO TABLETS BY MOUTH TWICE A DAY MAX=4TABS/DAY SOLD: 06/28/2021 [facility] Phenytoin sodium 100 MG Extended Release Oral Capsule Phenyt oin Sodium Extended 04/25/2021 12:00:00 AM EDT ORAL active MEDENT ([facility]) 24 HR Levetiracetam 750 MG Extended Release Oral Tablet [Kep pra] Keppra XR 04/25/2021 12:00:00 AM EDT ORAL active MEDENT ([facility]) 100 mg 04/22/2021 12:00:00 AM EDT capsule 180 TAKE THREE CAPSULES BY MOUTH TWICE A DAY MAXIMUM DAILY DOSE = 6 CAPSULES TAKE THREE CAPSULES BY MOUTH TWICE A DAY MAXIMUM DAILY DOSE = 6 CAPSULES SOLD: 04/23/2021 [facility] 100 mg 04/22/2021 12:00:00 AM EDT capsule 180 TAKE THREE CAPSULES BY MOUTH TWICE A DAY MAXIMUM DAILY DOSE = 6 CAPSULES TAKE THREE CAPSULES BY MOUTH TWICE A DAY MAXIMUM DAILY DOSE = 6 CAPSULES SOLD: 06/28/2021 [facility] 100 mg 04/22/2021 12:00:00 AM EDT capsule 180 TAKE THREE CAPSULES BY MOUTH TWICE A DAY MAXIMUM DAILY DOSE = 6 CAPSULES TAKE THREE CAPSULES BY MOUTH TWICE A DAY MAXIMUM DAILY DOSE = 6 CAPSULES SOLD: 05/28/2021 [facility] 100 mg 12/24/2020 12:00:00 AM EST capsule 150 TAKE TWO CAPSULES BY MOUTH EVERY MORNING AND TAKE THREE CAPSULES EVERY EVENING AT BEDTIME TAKE TWO CAPSULES BY MOUTH EVERY MORNING AND TAKE THREE CAPSULES EVERY EVENING AT BEDTIME SOLD: 12/24/2020 [facility] 100 mg 12/24/2020 12:00:00 AM EST capsule 150 TAKE TWO CAPSULES BY MOUTH EVERY MORNING AND TAKE THREE CAPSULES EVERY EVENING AT BEDTIME TAKE TWO CAPSULES BY MOUTH EVERY MORNING AND TAKE THREE CAPSULES EVERY EVENING AT BEDTIME SOLD: 01/27/2021 [facility] 100 mg 12/24/2020 12:00:00 AM EST capsule 150 TAKE TWO CAPSULES BY MOUTH EVERY MORNING AND TAKE THREE CAPSULES EVERY EVENING AT BEDTIME TAKE TWO CAPSULES BY MOUTH EVERY MORNING AND TAKE THREE CAPSULES EVERY EVENING AT BEDTIME SOLD: 03/31/2021 [facility] 100 mg 12/24/2020 12:00:00 AM EST capsule 150 TAKE TWO CAPSULES BY MOUTH EVERY MORNING AND TAKE THREE CAPSULES EVERY EVENING AT BEDTIME TAKE TWO CAPSULES BY MOUTH EVERY MORNING AND TAKE THREE CAPSULES EVERY EVENING AT BEDTIME SOLD: 03/02/2021 [facility] 750 mg 11/27/2020 12:00:00 AM EST tablet extended release 24 hr 120 TAKE TWO TABLETS BY MOUTH TWICE A DAY TAKE TWO TABLETS BY MOUTH TWICE A DAY SOLD: 03/31/2021 [facility] 750 mg 11/27/2020 12:00:00 AM EST tablet extended release 24 hr 120 TAKE TWO TABLETS BY MOUTH TWICE A DAY TAKE TWO TABLETS BY MOUTH TWICE A DAY SOLD: 03/02/2021 [facility] 750 mg 11/27/2020 12:00:00 AM EST tablet extended release 24 hr 120 TAKE TWO TABLETS BY MOUTH TWICE A DAY TAKE TWO TABLETS BY MOUTH TWICE A DAY SOLD: 04/23/2021 [facility] 750 mg 11/27/2020 12:00:00 AM EST tablet extended release 24 hr 120 TAKE TWO TABLETS BY MOUTH TWICE A DAY TAKE TWO TABLETS BY MOUTH TWICE A DAY SOLD: 01/27/2021 [facility] 750 mg 11/27/2020 12:00:00 AM EST tablet extended release 24 hr 120 TAKE TWO TABLETS BY MOUTH TWICE A DAY TAKE TWO TABLETS BY MOUTH TWICE A DAY SOLD: 12/27/2020 [facility] 750 mg 11/27/2020 12:00:00 AM EST tablet extended release 24 hr 120 TAKE TWO TABLETS BY MOUTH TWICE A DAY TAKE TWO TABLETS BY MOUTH TWICE A DAY SOLD: 11/29/2020 [facility] Ofloxacin 3 MG/ML Ophthalmic Solution Ofloxacin 0.3 % Ofloxa angelia 0.3 % 08/24/2020 12:00:00 AM EST 10.0 {drops_into_affected_ear} suspended Ofloxacin 0.3 % eCW1 ([facility]) Ofloxacin 3 MG/ML Ophthalmic Solution Ofloxacin 0.3 % Ofloxa angelia 0.3 % 08/24/2020 12:00:00 AM EST 10.0 {drops_into_affected_ear} suspended Ofloxacin 0.3 % eCW1 ([facility]) Ofloxacin 3 MG/ML Ophthalmic Solution Ofloxacin 0.3 % Ofloxa angelia 0.3 % 08/24/2020 12:00:00 AM EST 10.0 {drops_into_affected_ear} suspended Ofloxacin 0.3 % eCW1 ([facility]) Ofloxacin 3 MG/ML Ophthalmic Solution Ofloxacin 0.3 % Ofloxa angelia 0.3 % 08/24/2020 12:00:00 AM EST 10.0 {drops_into_affected_ear} active Ofloxacin 0.3 % eCW1 ([facility]) Ofloxacin 3 MG/ML Ophthalmic Solution Ofloxacin 0.3 % Ofloxa angelia 0.3 % 08/24/2020 12:00:00 AM EST 10.0 {drops_into_affected_ear} suspended Ofloxacin 0.3 % eCW1 ([facility]) Ofloxacin 3 MG/ML Ophthalmic Solution Ofloxacin 0.3 % Ofloxa angelia 0.3 % 08/24/2020 12:00:00 AM EST 10.0 {drops_into_affected_ear} suspended Ofloxacin 0.3 % eCW1 ([facility]) Ofloxacin 3 MG/ML Ophthalmic Solution Ofloxacin 0.3 % Ofloxa angelia 0.3 % 08/24/2020 12:00:00 AM EST 10.0 {drops_into_affected_ear} suspended Ofloxacin 0.3 % eCW1 ([facility]) 0.3 % 08/24/2020 12:00:00 AM EST drops 5 INSTILL 10 DROPS IN AFFECTED EAR ONCE DAILY FOR 7 DAYS INSTILL 10 DROPS IN AFFECTED EAR ONCE DAILY FOR 7 DAYS SOLD: 08/24/2020 [facility] Ofloxacin 3 MG/ML Ophthalmic Solution Ofloxacin 0.3 % Ofloxa angelia 0.3 % 08/24/2020 12:00:00 AM EST 10.0 {drops_into_affected_ear} suspended Ofloxacin 0.3 % eCW1 ([facility]) Ofloxacin 3 MG/ML Ophthalmic Solution Ofloxacin 0.3 % Ofloxa angelia 0.3 % 08/24/2020 12:00:00 AM EST 10.0 {drops_into_affected_ear} suspended Ofloxacin 0.3 % eCW1 ([facility]) 100 mg 07/28/2020 12:00:00 AM EDT capsule 150 TAKE TWO CAPSULES BY MOUTH EVERY MORNING AND TAKE THREE CAPSULES BY MOUTH AT BEDTIME TAKE TWO CAPSULES BY MOUTH EVERY MORNING AND TAKE THREE CAPSULES BY MOUTH AT BEDTIME SOLD: 11/26/2020 [facility] 100 mg 07/28/2020 12:00:00 AM EDT capsule 150 TAKE TWO CAPSULES BY MOUTH EVERY MORNING AND TAKE THREE CAPSULES BY MOUTH AT BEDTIME TAKE TWO CAPSULES BY MOUTH EVERY MORNING AND TAKE THREE CAPSULES BY MOUTH AT BEDTIME SOLD: 10/29/2020 [facility] 100 mg 07/28/2020 12:00:00 AM EDT capsule 150 TAKE TWO CAPSULES BY MOUTH EVERY MORNING AND TAKE THREE CAPSULES BY MOUTH AT BEDTIME TAKE TWO CAPSULES BY MOUTH EVERY MORNING AND TAKE THREE CAPSULES BY MOUTH AT BEDTIME SOLD: 08/27/2020 [facility] 100 mg 07/28/2020 12:00:00 AM EDT capsule 150 TAKE TWO CAPSULES BY MOUTH EVERY MORNING AND TAKE THREE CAPSULES BY MOUTH AT BEDTIME TAKE TWO CAPSULES BY MOUTH EVERY MORNING AND TAKE THREE CAPSULES BY MOUTH AT BEDTIME SOLD: 09/24/2020 [facility] 100 mg 07/28/2020 12:00:00 AM EDT capsule 150 TAKE TWO CAPSULES BY MOUTH EVERY MORNING AND TAKE THREE CAPSULES BY MOUTH AT BEDTIME TAKE TWO CAPSULES BY MOUTH EVERY MORNING AND TAKE THREE CAPSULES BY MOUTH AT BEDTIME SOLD: 07/28/2020 [facility] 750 mg 05/20/2020 12:00:00 AM EDT tablet extended release 24 hr 120 TAKE TWO TABLETS BY MOUTH TWICE A DAY TAKE TWO TABLETS BY MOUTH TWICE A DAY SOLD: 08/27/2020 [facility] 750 mg 05/20/2020 12:00:00 AM EDT tablet extended release 24 hr 120 TAKE TWO TABLETS BY MOUTH TWICE A DAY TAKE TWO TABLETS BY MOUTH TWICE A DAY SOLD: 09/24/2020 [facility] 750 mg 05/20/2020 12:00:00 AM EDT tablet extended release 24 hr 120 TAKE TWO TABLETS BY MOUTH TWICE A DAY TAKE TWO TABLETS BY MOUTH TWICE A DAY SOLD: 10/29/2020 [facility] 750 mg 05/20/2020 12:00:00 AM EDT tablet extended release 24 hr 120 TAKE TWO TABLETS BY MOUTH TWICE A DAY TAKE TWO TABLETS BY MOUTH TWICE A DAY SOLD: 06/22/2020 [facility] 750 mg 05/20/2020 12:00:00 AM EDT tablet extended release 24 hr 120 TAKE TWO TABLETS BY MOUTH TWICE A DAY TAKE TWO TABLETS BY MOUTH TWICE A DAY SOLD: 07/23/2020 [facility] 100 mg 11/12/2019 12:00:00 AM EST capsule 150 TAKE TWO CAPSULES BY MOUTH EVERY MORNING AND TAKE THREE CAPSULES BY MOUTH AT BEDTIME MAXIMUM DAILY DOSE = 5 TAKE TWO CAPSULES BY MOUTH EVERY MORNING AND TAKE THREE CAPSULES BY MOUTH AT BEDTIME MAXIMUM DAILY DOSE = 5 SOLD: 06/19/2020 [facility] Insurance Providers Payer name Policy type / Coverage type Policy ID Covered alliance party ID Covered alliance party's relationship to jay Policy Jay Plan Information [facility] [id number] [place] [id number] MEDICAID [id number] SP [id number] MEDICAID [id number] SP [id number] SELF PAY ONLY MEDICARE - [place] [id number] S [id number] MEDICAID [id number] S [id number] [place] MED[facility] DIVISION [id number] S [id number] MEDICAID [id number] SP [id number] MEDICARE [id number] SP [id number] [facility] BLUE [id number] SP [id number] [facility] [phone] [id number] [place] [id number] ANSI-Medicare Part B [id number] ANSI-Medicare Part B [id number] MEDICARE - [place] [id number] S [id number] MEDICAID [id number] S [id number] Medicaid Medigap Part B [id number] Self [id number] Medicare Part B Medicare Primary [id number] Self [id number] ANSI-Medicare Part B [id number] ANSI-Medicare Part B [id number] Medicaid [facility] Part B [id number] Self [id number] ANSI-Medicare Part B [id number] ANSI-Medicare Part B [id number] [facility] [id number] 30.0 Self [id number] Medicare Part B Medicare Primary [id number] Self [id number] Medicaid Medigap Part B [id number] [id number] Self [id number] MEDICARE [id number] SP [id number] MEDICAID [id number] SP [id number] SELF [place]Y [place] [id number] SP [id number] P [id number] MEDICARE [id number] SP [id number] EMEDNY [id number] SP [id number] Problems, Conditions, and Diagnoses No Information Surgeries/Procedures Procedure Description Date Indications Data Source(s) OFFICE OUTPATIENT VISIT 25 MINUTES 04/15/2021 12:00:00 AM EDT MEDENT ([facility] ) OFFICE OUTPATIENT VISIT 25 MINUTES 03/29/2021 12:00:00 AM EDT MEDENT ([facility] ) PHYSICIAN TELEPHONE EVALUATION 11-20 MIN 12/24/2020 12 :00:00 AM EST MEDENT ([facility] ) Medication: Tuberculin Purified Protein 0.1mL Intradermal (P PD) 12/22/2020 12:00:00 AM EST eCW1 ([facility]) Results ID Date Data Source [id number] 06/11/2021 08:12:00 AM EDT MEDENT ([facility] ) Name Value Range Interpretation Code Description Data Renée rce(s) Supporting Document(s) Phenytoin [Mass/volume] in Serum or Plasma 18.8 UG/ML 10.0-20.0 MEDENT ([facility] ) Levetiracetam [Mass/volume] in Serum or Plasma 26.1 ug/mL 10.0-40.0 MEDENT ([facility] ) This test was developed and its performa nce characteristics determined by [facility]. It has not been cleared or approved by the Food and Drug Administration. Performed at: [address] [id number] Care Aide: Margaret Gomez MD, Phone: [phone] ID Date Data Source [id number] 05/03/2021 10:06:00 AM EDT [facility] Name Value Range Interpretation Code Description Data Renée rce(s) Supporting Document(s) SARS COVID ANTIGEN NEGATIVE [facility] This lab was ordered by ANTHONY last nd reported by [facility]. ID Date Data Source ADELITA COVID AG (Point of Care) 05/03/2021 12:00:00 AM EDT eC W1 ([facility]) Name Value Range Interpretation Code Description Data Renée rce(s) Supporting Document(s) NEGATIVE NEGATIVE ADELITA COVID ANTIGEN eCW1 ([facility]) ID Date Data Source [id number] 04/09/2021 01:21:00 PM EDT MEDENT ([facility] ) Name Value Range Interpretation Code Description Data Renée rce(s) Supporting Document(s) Phenytoin [Mass/volume] in Serum or Plasma 11.8 UG/ML 10.0-20.0 MEDENT ([facility] ) ID Date Data Source [id number] 04/09/2021 01:21:00 PM EDT MEDENT ([facility] ) Name Value Range Interpretation Code Description Data Renée rce(s) Supporting Document(s) Glucose, Fasting 146 mg/dL 70-100 MEDENT ([facility], ) Blood Urea Nitrogen 11 mg/dL 7-18 MEDENT ([facility], ) Creatinine For GFR 0.58 mg/dL 0.70-1.30 MEDENT ([facility], ) Glomerular Filtration Rate Laboratory [facility], [facility] <content>Units are mL/min/1.73 m2</content>
<content></content>
<content>Chronic Kidney Disease Staging per NKF:</content>
<content></content>
<content>Stage I & II GFR >=60 Normal to Mildly Decreased</content>
<content>Stage III GFR 30- 59 Moderately Decreased</content>
<content>Stage IV GFR 15-29 Severely Decreased</content>
<content>Stage V GFR <15 Very Little GFR Left</content>
<content>ESRD GFR <15 on DRAFTER SEISMOGRAPH</content>
<content></content> Sodium Level 137 meq/L 136-145 MEDENT ([facility], ) Potassium Serum 4.1 meq/L 3.5-5.1 MEDENT ([facility]) Chloride Level 102 meq/L 98-107 MEDENT ([facility], ) Carbon Dioxide Level 31 meq/L 21-32 MEDENT ([facility]) Anion Gap 4 meq/L 8-16 MEDENT ([facility]) Calcium Level 8.9 mg/dL 8.5-10.1 MEDENT ([facility], ) Ast/Sgot 20 U/L 7-37 MEDENT ([facility], ) Alt/SGPT 40 U/L 12-78 MEDENT ([facility]) Alkaline Phosphatase 129 U/L 45-117 MEDENT ([facility]) Bilirubin,Total 0.3 mg/dL 0.2-1.0 MEDENT ([facility]) Total Protein 8.1 GM/DL 6.4-8.2 MEDENT ([facility], ) Albumin 3.9 GM/DL 3.2-5.2 MEDENT ([facility]) Albumin/Globulin Ratio 0.9 MEDENT ([facility]) ID Date Data Source [id number] 04/09/2021 01:21:00 PM EDT MEDENT ([facility]) Name Value Range Interpretation Code Description Data Renée rce(s) Supporting Document(s) White Blood Count 10.1 10 4.0-10.0 MEDENT ([facility], ) Red Blood Count 4.78 10 4.30-6.10 MEDENT ([facility]) Hemoglobin 14.9 g/dL 13.5-17.5 MEDENT ([facility], ) Hematocrit 45.7 % 42.0-52.0 MEDENT ([facility], ) Mean Corpuscular Volume 95.6 fl 80.0-96.0 M EDENT ([facility]) Mean Corpuscular Hemoglobin 31.2 pg 27.0-33.0 MEDENT ([facility]) Mean Corpuscular HGB Conc 32.6 g/dL 32.0-36.5 MEDENT ([facility]) Red Cell Distribution Width 11.7 % 11.5-14.5 MED[facility] ([facility]) Platelet Count, Automated 296 10 150-450 MEDENT ([facility]) Neutrophils % 64.7 % 36.0-66.0 MEDENT ([facility]) Lymph % 26.1 % 24.0-44.0 MEDENT ([facility]) [place] % 8.0 % 2.0-8.0 MEDENT ([facility]) Eos % 0.6 % 0.0-3.0 MEDENT ([facility]) Baso % 0.3 % 0.0-1.0 MEDENT ([facility]) Immature Granulocyte % 0.3 % 0-3.0 MEDENT ([facility]) Nucleated Red Blood Cell % 0.0 % 0-0 MED ENT ([facility]) Neutrophils # 6.6 10 1.5-8.5 MEDENT ([facility]) Lymph # 2.6 10 1.5-5.0 MEDENT ([facility]) [place] # 0.8 10 0.0-0.8 MED[facility] ([facility]) Eos # 0.1 10 0.0-0.5 MED[facility] ([facility]) Baso # 0.0 10 0.0-0.2 MEDENT ([facility]) ID Date Data Source [id number] 11/18/2020 11:38:00 AM EST MEDENT ([facility]) Name Value Range Interpretation Code Description Data Renée rce(s) Supporting Document(s) Phenytoin [Mass/volume] in Serum or Plasma 16.3 UG/ML 10.0-20.0 MEDENT ([facility]) ID Date Data Source LIPID PANEL (CARDIAC RISK) 11/18/2020 12:00:00 AM EST eCW1 ( [facility]) Name Value Range Interpretation Code Description Data Renée rce(s) Supporting Document(s) Cholesterol in HDL [Moles/volume] in Serum or Plasma 58 >40 [facility] ([facility]) Cholesterol [Moles/volume] in Serum or Plasma 206 <200 eCW1 ([facility]) Triglyceride [Mass/volume] in Serum or Plasma by calculation 229 <150 eCW1 ([facility]) 148 eCW1 ([facility]) 3.551 <5 eCW1 ([facility]) Cholesterol in LDL [Mass/volume] in Serum or Plasma by calculation 10 2 <100 eCW1 ([facility]) ID Date Data Source FREE T4 & TSH PANEL 11/18/2020 12:00:00 AM EST eCW1 ([facility]) Name Value Range Interpretation Code Description Data Renée rce(s) Supporting Document(s) 2.210 0.358-3.740 eCW1 ([facility]) 0.69 0.76-1.46 eCW1 ([facility]) ID Date Data Source Comprehensive Metabolic Profile (CMP) 11/18/2020 12:00:00 AM EST eCW1 ([facility]) Name Value Range Interpretation Code Description Data Renée rce(s) Supporting Document(s) 13 7-18 eCW1 ([facility]) 131 70-100 eCW1 ([facility]) > 60.0 >60 eCW1 ([facility]) 136 136-145 eCW1 ([facility]) 0.73 0.70-1.30 eCW1 ([facility]) 4.3 3.5-5.1 eCW1 ([facility]) 101 98-107 eCW1 ([facility]) 9.5 8.5-10.1 eCW1 ([facility]) 18 7-37 eCW1 ([facility]) 30 21-32 eCW1 ([facility]) 0.3 0.2-1.0 eCW1 ([facility]) 139 45-117 eCW1 ([facility]) 49 12-78 eCW1 ([facility]) 4.2 3.2-5.2 eCW1 ([facility]) 8.5 6.4-8.2 eCW1 ([facility]) 1.0 eCW1 ([facility]) ID Date Data Source CBC with Differential 11/18/2020 12:00:00 AM EST eCW1 ([facility]) Name Value Range Interpretation Code Description Data Renée rce(s) Supporting Document(s) 47.6 42.0-52.0 eCW1 ([facility]) 9.1 4.0-10.0 eCW1 ([facility]) 15.6 13.5-17.5 eCW1 ([facility]) 5.06 4.30-6.10 eCW1 ([facility]) 30.8 27.0-33.0 eCW1 ([facility]) 32.8 32.0-36.5 eCW1 ([facility]) 94.1 80.0-96.0 eCW1 ([facility]) 11.8 11.5-14.5 eCW1 ([facility]) 58.5 36.0-66.0 eCW1 ([facility]) 9.5 0.0-5.0 eCW1 ([facility] [place]) 292 150-450 eCW1 ([facility]) 30.6 24.0-44.0 eCW1 ([facility]) 0.4 0.0-1.0 eCW1 ([facility]) 0.8 0.0-3.0 eCW1 ([facility]) 5.3 1.5-8.5 eCW1 ([facility]) 2.8 1.5-5.0 eCW1 ([facility]) 0.0 0.0-0.2 eCW1 ([facility]) 0.9 0.0-0.8 eCW1 ([facility]) 0.1 0.0-0.5 eCW1 ([facility]) ID Date Data Source [id number] 11/05/2020 12:00:00 AM EST [facility] Name Value Range Interpretation Code Description Data Renée rce(s) Supporting Document(s) SARS-CoV-2 (COVID-19) RNA [Presence] in Respiratory specimen by SUKI with probe detection Not Detected [facility] This lab was ordered by [facility] and reported by [employer] ID Date Data Source [id number] 10/23/2020 01:50:00 PM EST MEDENT ([facility] ) Name Value Range Interpretation Code Description Data Renée rce(s) Supporting Document(s) Phenytoin [Mass/volume] in Serum or Plasma 14.7 UG/ML 10.0-20.0 MEDENT ([facility] ) Levetiracetam [Mass/volume] in Serum or Plasma 29.1 ug/mL 10.0-40.0 MEDENT ([facility] ) This test was developed and its performa nce characteristics determined by [facility]. It has not been cleared or approved by the Food and Drug Administration. Performed at: [address] [id number] [address] Care Aide: Margaret Gomez MD, Phone: [phone] ID Date Data Source [id number] 07/06/2020 11:50:00 AM EDT MEDENT ([facility]) Name Value Range Interpretation Code Description Data Renée rce(s) Supporting Document(s) Phenytoin [Mass/volume] in Serum or Plasma 16.2 UG/ML 10.0-20.0 MEDENT ([facility] ) Procedure Social History Code Duration Value Status Description Data Source(s ) Smoking 05/03/2021 12:00:00 AM EDT Never Smoker completed Never S moker eCW1 ([facility]) Smoking 05/03/2021 12:00:00 AM EDT Never Smoker completed Never S moker eCW1 ([facility]) Smoking 11/18/2020 12:00:00 AM EST Never Smoker completed Never S moker eCW1 ([facility]) Smoking 11/18/2020 12:00:00 AM EST Never Smoker completed Never S moker eCW1 ([facility]) Smoking 11/18/2020 12:00:00 AM EST Never Smoker completed Never S moker eCW1 ([facility]) Smoking 11/18/2020 12:00:00 AM EST Never Smoker completed Never S moker eCW1 ([facility]) Smoking 11/18/2020 12:00:00 AM EST Never Smoker completed Never S moker eCW1 ([facility]) Smoking 11/18/2020 12:00:00 AM EST Never Smoker completed Never S moker eCW1 ([facility]) Smoking 08/24/2020 12:00:00 AM EST Never Smoker completed Never S moker eCW1 ([facility]) Vital Signs ID Date Data Source UNK Name Value Range Interpretation Code Description Data Source(s) Body weight 192 [lb_av] 192 [lb_av] eCW1 ([facility]) Body height [in_i] eCW1 ([facility]) Body mass index (BMI) [Ratio] 30.07 kg/m2 30.07 kg/m2 eCW1 ([facility]) Heart rate 90 /min 90 /min eCW1 ([facility]) Respiratory rate 18 /min 18 /min eCW1 ([facility]) Body temperature 96.5 [degF] 96.5 [degF] eCW1 ( [facility]) Systolic blood pressure 114 mm[Hg] 114 mm[Hg] e CW1 ([facility]) Diastolic blood pressure 77 mm[Hg] 77 mm[Hg] eCW1 ([facility]) Systolic blood pressure 110 mm[Hg] 110 mm[Hg] M EDENT ([facility] ) Diastolic blood pressure 80 mm[Hg] 80 mm[Hg] MEDENT ([facility] ) Heart rate 68 /min 68 /min MEDENT ([facility] ) Respiratory rate 16 /min 16 /min MEDENT ( [facility] ) Systolic blood pressure 110 mm[Hg] 110 mm[Hg] M EDENT ([facility] ) Diastolic blood pressure 60 mm[Hg] 60 mm[Hg] MEDENT ([facility] ) Respiratory rate 16 /min 16 /min MEDENT ( [facility] ) Heart rate 64 /min 64 /min MEDENT ([facility] ) Body weight [lb_av] eCW1 ([facility]) Body height [in_i] eCW1 ([facility]) Body mass index (BMI) [Ratio] 30.07 kg/m2 30.07 kg/m2 eCW1 ([facility]) Heart rate 89 /min 89 /min eCW1 ([facility]) Respiratory rate 16 /min 16 /min eCW1 ([facility]) Body temperature 97.0 [degF] 97.0 [degF] eCW1 ( [facility]) Systolic blood pressure 122 mm[Hg] 122 mm[Hg] e CW1 ([facility]) Diastolic blood pressure 88 mm[Hg] 88 mm[Hg] eCW1 ([facility]) Body weight 191 [lb_av] 191 [lb_av] eCW1 ([facility]) Body height [in_i] eCW1 ([facility]) Body mass index (BMI) [Ratio] 29.91 kg/m2 29.91 kg/m2 eCW1 ([facility]) Heart rate 94 /min 94 /min eCW1 ([facility]) Respiratory rate 16 /min 16 /min eCW1 ([facility]) Body temperature 97.2 [degF] 97.2 [degF] eCW1 ( [facility]) Systolic blood pressure 118 mm[Hg] 118 mm[Hg] e CW1 ([facility]) Diastolic blood pressure 64 mm[Hg] 64 mm[Hg] eCW1 ([facility]) Systolic blood pressure 122 mm[Hg] 122 mm[Hg] M EDENT ([facility] ) Diastolic blood pressure 80 mm[Hg] 80 mm[Hg] MEDENT ([facility]) Heart rate 76 /min 76 /min MEDENT ([facility]) Respiratory rate 16 /min 16 /min MEDENT ( [facility] ) Patient Treatment Plan of Care Planned Activity Planned Date Details Description Data Source (s) Ofloxacin 3 MG/ML Ophthalmic Solution 08/24/2020 12:00:00 AM EST eCW1 ([facility])
[2021-08-04 15:46] LABS: BASO % 0.2 % (0.0-1.0); EOS % 0.4 % (0.0-3.0); HEMATOCRIT 46.7 % (42.0-52.0); HEMOGLOBIN 15.6 g/dl (13.5-17.5); LYMPH % 35.9 % (24.0-44.0); MEAN CORPUSCULAR HEMOGLOBIN 31.5 pg (27.0-33.0); MEAN CORPUSCULAR HGB CONC 33.4 g/dl (32.0-36.5); MEAN CORPUSCULAR VOLUME 94.3 fl (80.0-96.0); MONO # 0.6 10^3/uL (0.0-0.8); MONO % 7.5 % (2.0-8.0); NEUTROPHILS # 4.7 10^3/uL (1.5-8.5); NEUTROPHILS % 55.6 % (36.0-66.0); PLATELET COUNT, AUTOMATED 349 10^3/uL (150-450); RED BLOOD COUNT 4.95 10^6/uL (4.30-6.10); WHITE BLOOD COUNT 8.4 10^3/uL (4.0-10.0)
[2021-08-04 16:11] LABS: BLOOD UREA NITROGEN 12 MG/DL (7-18); CALCIUM LEVEL 9.1 MG/DL (8.5-10.1); CARBON DIOXIDE LEVEL 28 MEQ/L (21-32); CHLORIDE LEVEL 102 MEQ/L (98-107); CREATININE FOR GFR 0.94 MG/DL (0.70-1.30); GLOMERULAR FILTRATION RATE > 60.0 (>60); GLUCOSE, FASTING 161 MG/DL (70-100); PHENYTOIN (DILANTIN) 16.2 UG/ML (10.0-20.0); POTASSIUM SERUM 4.5 MEQ/L (3.5-5.1); SODIUM LEVEL 137 MEQ/L (136-145)
--- OUTSIDE RECORDS SUMMARY | 2021-08-04 17:46 | CCD ---
Author Author [facility] Organization [facility] Address Unknown Phone Unavailable Care Team Providers Care Photo Finisher Name Role Phone Trickey, J Beata PA [...] is protected by Article 27-F of the [facility] Public [facility] law. If you continue you may have access to information: Regarding HIV / AIDS; Provided by facilities licensed or operated by the [facility] Office of Mental Health; or Provided by the [facility] Office for People With Developmental Disabilities. If such information is present, then the following [facility] mandated warning applies: This information has been [...] law may result in a fine or fci sentence or both. A general authorization for the release of medical or other information is NOT sufficient authorization for further disc losure. Encounters Encounter Providers Location Date Indications Data Source(s ) [place] [address] [facility] [address] 05/03/2021 12:00:00 AM EDT eCW1 ([facility]) Unknown [address] [facility] [place] [address] 05/03/2021 12:00:00 AM EDT eCW1 ([facility]) Unknown [address] [facility] [address] 04/29/2021 12:00:00 AM EDT eCW1 ([facility]) Outpatient Attender: Beata PRO [facility] n 04/15/2021 02:45:00 PM EDT MEDENT ([facility] meño ) Outpatient Attender: Beata PRO [facility] n 03/29/2021 01:45:00 PM EDT MEDENT ([facility] meño ) [place] [address] [facility] [address] 02/10/2021 12:00:00 AM EDT eCW1 ([facility]) Office Visit Attender: Beata PRO [facility] n 12/24/2020 07:45:00 AM EST MEDENT ([facility] meño ) [place] [address] [facility] [address] 12/22/2020 12:00:00 AM EST eCW1 ([facility]) Unknown [address] [facility] [place] [address] 12/11/2020 12:00:00 AM EST eCW1 ([facility]) Unknown [address] [facility] [address] 12/02/2020 12:00:00 AM EST eCW1 ([facility]) Outpatient [address] [facility] [address] 11/18/2020 12:00:00 AM EST eCW1 ([facility]) Outpatient [address] [facility] [address] 08/24/2020 12:00:00 AM EST eCW1 ([facility]) Outpatient Attender: Beata PRO Main office - [facility] 08/04/2020 01:30:00 PM EDT MEDENT ([facility] meño, ) Immunizations Vaccine Date Status Description Data Source(s) COVID-19 VACCINE Jeanne 01/18/2021 12:00:00 AM EDT completed [facility]SIIS Vaccine Series Complete: YESThis Data wa s Submitted to [facility] [employer] IIV3. This is one of two codes replacing CVX 15, which is being retired. 07/18/2020 03:52:00 PM EDT completed eCW1 (Count includes the [facility]) IIV3. This is one of two codes replacing CVX 15, which is being retired. 07/18/2020 03:52:00 PM EDT completed eCW1 (Count includes the [facility]) IIV3. This is one of two codes replacing CVX 15, which is being retired. 07/18/2020 03:52:00 PM EDT completed eCW1 (Count includes the [facility]) IIV3. This is one of two codes replacing CVX 15, which is being retired. 07/18/2020 03:52:00 PM EDT completed eCW1 (Count includes the [facility]) IIV3. This is one of two codes replacing CVX 15, which is being retired. 07/18/2020 03:52:00 PM EDT completed eCW1 (Count includes the [facility]) IIV3. This is one of two codes replacing CVX 15, which is being retired. 07/18/2020 03:52:00 PM EDT completed eCW1 (Count includes the [facility]) IIV3. This is one of two codes replacing CVX 15, which is being retired. 07/18/2020 03:52:00 PM EDT completed eCW1 (Count includes the [facility]) IIV3. This is one of two codes replacing CVX 15, which is being retired. 07/18/2020 03:52:00 PM EDT completed eCW1 (Count includes the [facility]) IIV3. This is one of two codes replacing CVX 15, which is being retired. 07/18/2020 03:52:00 PM EDT completed eCW1 (Count includes the [facility]) INFLUENZA VIRUS VACCINE QUADRIVALENT 2019-21 (6 MOS [...] 04/25/2021 12:00:00 AM EDT ORAL active MEDENT ([facility]) 24 HR Levetiracetam 750 MG Extended Release Oral Tablet [Kep pra] Keppra XR 04/25/2021 12:00:00 AM EDT ORAL active MEDENT ([facility]) 100 mg 04/22/2021 [...] BY MOUTH TWICE A DAY SOLD: 11/29/2020 [facility] Ofloxacin 3 MG/ML Ophthalmic Solution Ofloxacin 0.3 % Ofloxa angelia 0.3 % 08/24/2020 12:00:00 AM EST 10.0 {drops_into_affected_ear} suspended Ofloxacin 0.3 % eCW1 ([facility]) Ofloxacin 3 MG/ML Ophthalmic Solution Ofloxacin 0.3 % Ofloxa angelia 0.3 % 08/24/2020 12:00:00 AM EST 10.0 {drops_into_affected_ear} suspended Ofloxacin 0.3 % eCW1 ([facility]) Ofloxacin 3 MG/ML Ophthalmic Solution Ofloxacin 0.3 % Ofloxa angelia 0.3 % 08/24/2020 12:00:00 AM EST 10.0 {drops_into_affected_ear} suspended Ofloxacin 0.3 % eCW1 ([facility]) Ofloxacin 3 MG/ML Ophthalmic Solution Ofloxacin 0.3 % Ofloxa angelia 0.3 % 08/24/2020 12:00:00 AM EST 10.0 {drops_into_affected_ear} active Ofloxacin 0.3 % eCW1 ([facility]) Ofloxacin 3 MG/ML Ophthalmic Solution Ofloxacin 0.3 % Ofloxa angelia 0.3 % 08/24/2020 12:00:00 AM EST 10.0 {drops_into_affected_ear} suspended Ofloxacin 0.3 % eCW1 ([facility]) Ofloxacin 3 MG/ML Ophthalmic Solution Ofloxacin 0.3 % Ofloxa angelia 0.3 % 08/24/2020 12:00:00 AM EST 10.0 {drops_into_affected_ear} suspended Ofloxacin 0.3 % eCW1 ([facility]) Ofloxacin 3 MG/ML Ophthalmic Solution Ofloxacin 0.3 % Ofloxa angelia 0.3 % 08/24/2020 12:00:00 AM EST 10.0 {drops_into_affected_ear} suspended Ofloxacin 0.3 % eCW1 ([facility]) 0.3 % 08/24/2020 12:00:00 AM EST drops 5 INSTILL 10 DROPS IN AFFECTED EAR ONCE DAILY FOR 7 DAYS INSTILL 10 DROPS IN AFFECTED EAR ONCE DAILY FOR 7 DAYS SOLD: 08/24/2020 [facility] Ofloxacin 3 MG/ML Ophthalmic Solution Ofloxacin 0.3 % Ofloxa angelia 0.3 % 08/24/2020 12:00:00 AM EST 10.0 {drops_into_affected_ear} suspended Ofloxacin 0.3 % eCW1 ([facility]) Ofloxacin 3 MG/ML Ophthalmic Solution Ofloxacin 0.3 % Ofloxa angelia 0.3 % 08/24/2020 12:00:00 AM EST 10.0 {drops_into_affected_ear} suspended Ofloxacin 0.3 % eCW1 ([facility]) 100 mg 07/28/2020 12:00:00 AM EDT capsule [...] type / Coverage type Policy ID Covered libertarian ID Covered libertarian's relationship to jay Policy Jay Plan Information [facility] [id number] [place] [id number] MEDICAID [id number] SP [id number] MEDICAID [id number] SP [id number] SELF PAY ONLY MEDICARE - [place] [id number] S [id number] MEDICAID [id number] S [id number] [facility] MED[facility] DIVISION [id number] S [id number] MEDICAID [id number] SP [id number] MEDICARE [id number] [facility] BLUE [id number] SP [id number] BC[id number] [place] [id number] ANSI-Medicare Part B [id number] ANSI-Medicare Part B [id number] MEDICARE - [place] [id number] S [id number] MEDICAID [id number] S [id number] Medicaid Medigap Part B [id number] Self [id number] Medicare Part B Medicare Primary [id number] Self [id number] ANSI-Medicare Part B [id number] ANSI-Medicare Part B [id number] Medicaid [facility] Part B [id number] 30.0 Self [id number] ANSI-Medicare Part B [id number] ANSI-Medicare Part B [id number] [facility] [id number] 30.0 Self [id number] Medicare Part B Medicare Primary [id number] Self [id number] Medicaid Medigap Part B [id number] 30.0 Self [id number] MEDICARE [id number] SP [id number] MEDICAID [id number] SP [id number] SELF PAY [place] [id number] SP [id number] P [id number] MEDICARE [id number] SP [id number] EMEDNY [id number] SP [id number] Problems, Conditions, and Diagnoses No Information Surgeries/Procedures Procedure Description Date Indications Data Source(s) OFFICE OUTPATIENT VISIT 25 MINUTES 04/15/2021 12:00:00 AM EDT MEDENT ([facility] ) OFFICE OUTPATIENT VISIT 25 MINUTES 03/29/2021 12:00:00 AM EDT MEDENT ([facility] ) PHYSICIAN TELEPHONE EVALUATION 11-20 MIN 12/24/2020 12 :00:00 AM EST MEDENT ([facility] ) Medication: Tuberculin Purified Protein 0.1mL Intradermal (P PD) 12/22/2020 12:00:00 AM EST eCW1 ([facility]) Results ID Date Data Source [id number] 06/11/2021 08:12:00 AM EDT MEDENT ([facility] ) Name Value Range Interpretation Code Description Data Renée rce(s) Supporting Document(s) Phenytoin [Mass/volume] in Serum or Plasma 18.8 UG/ML 10.0-20.0 MEDENT ([facility] ) Levetiracetam [Mass/volume] in Serum or Plasma 26.1 ug/mL 10.0-40.0 MEDENT ([facility] ) This test was developed and its performa nce characteristics determined by [facility]. It has not been cleared or approved by the Food and Drug Administration. Performed at: [address] [id number] [employer] Supervisor: Margaret Gomez MD, Phone: [phone] ID Date Data Source [id number] 05/03/2021 10:06:00 AM EDT [facility] Name Value Range Interpretation Code Description Data Renée rce(s) Supporting Document(s) SARS COVID ANTIGEN NEGATIVE [facility] This lab was ordered by ANTHONY last nd reported by [facility]. ID Date Data Source ADELITA COVID AG (Point of Care) 05/03/2021 12:00:00 AM EDT eC W1 ([facility]) Name Value Range Interpretation Code Description Data Renée rce(s) Supporting Document(s) NEGATIVE NEGATIVE ADELITA COVID ANTIGEN eCW1 ([facility]) ID Date Data Source [id number] 04/09/2021 01:21:00 PM EDT MEDENT ([facility] ) Name Value Range Interpretation Code Description Data Renée rce(s) Supporting Document(s) Phenytoin [Mass/volume] in Serum or Plasma 11.8 UG/ML 10.0-20.0 MEDENT ([facility] ) ID Date Data Source [id number] 04/09/2021 01:21:00 PM EDT MEDENT ([facility] ) Name Value Range Interpretation Code Description Data Renée rce(s) Supporting Document(s) Glucose, Fasting 146 mg/dL 70-100 MEDENT ([facility] ) Blood Urea Nitrogen 11 mg/dL 7-18 MEDENT (No [facility], ) Creatinine For GFR 0.58 mg/dL 0.70-1.30 MEDENT ([facility] ) Glomerular Filtration Rate [facility] <content>Units are mL/min/1.73 m2</content>
<content></content>
<content>Chronic Kidney Disease Staging per NKF:</content>
<content></content>
<content>Stage I & II GFR >=60 Normal to Mildly Decreased</content>
<content>Stage III GFR 30- 59 Moderately Decreased</content>
<content>Stage IV GFR 15-29 Severely Decreased</content>
<content>Stage V GFR <15 Very Little GFR Left</content>
<content>ESRD GFR <15 on TOP POLISHER</content>
<content></content> Sodium Level 137 meq/L 136-145 MEDENT ([facility], ) Potassium Serum 4.1 meq/L 3.5-5.1 MEDENT ([facility]) Chloride Level 102 meq/L 98-107 MEDENT ([facility], ) Carbon Dioxide Level 31 meq/L 21-32 MEDENT ([facility]) Anion Gap 4 meq/L 8-16 MEDENT ([facility]) Calcium Level 8.9 mg/dL 8.5-10.1 MEDENT ([facility], ) Ast/Sgot 20 U/L 7-37 MEDENT ([facility], ) Alt/SGPT 40 U/L 12-78 MEDENT ([facility]) Alkaline Phosphatase 129 U/L 45-117 MEDENT ([facility]) Bilirubin,Total 0.3 mg/dL 0.2-1.0 MEDENT ([facility]) Total Protein 8.1 GM/DL 6.4-8.2 MEDENT ([facility], ) Albumin 3.9 GM/DL 3.2-5.2 MEDENT ([facility]) Albumin/Globulin Ratio 0.9 MEDENT ([facility]) ID Date Data Source [id number] 04/09/2021 01:21:00 PM EDT MEDENT ([facility]) Name Value Range Interpretation Code Description Data Renée rce(s) Supporting Document(s) White Blood Count 10.1 10 4.0-10.0 MEDENT ([facility], ) Red Blood Count 4.78 10 4.30-6.10 MEDENT ([facility]) Hemoglobin 14.9 g/dL 13.5-17.5 MEDENT ([facility], ) Hematocrit 45.7 % 42.0-52.0 MEDENT ([facility], ) Mean Corpuscular Volume 95.6 fl 80.0-96.0 M EDENT ([facility]) Mean Corpuscular Hemoglobin 31.2 pg 27.0-33.0 MEDENT ([facility]) Mean Corpuscular HGB Conc 32.6 g/dL 32.0-36.5 MEDENT ([facility]) Red Cell Distribution Width 11.7 % 11.5-14.5 MEDENT ([facility]) Platelet Count, Automated 296 10 150-450 MEDENT ([facility]) Neutrophils % 64.7 % 36.0-66.0 MEDENT ([facility]) Lymph % 26.1 % 24.0-44.0 MEDENT ([facility]) Harlan % 8.0 % 2.0-8.0 MEDENT ([facility]) Eos % 0.6 % 0.0-3.0 MEDENT ([facility]) Baso % 0.3 % 0.0-1.0 MEDENT ([facility]) Immature Granulocyte % 0.3 % 0-3.0 MEDENT ([facility]) Nucleated Red Blood Cell % 0.0 % 0-0 MED ENT ([facility]) Neutrophils # 6.6 10 1.5-8.5 MEDENT ([facility]) Lymph # 2.6 10 1.5-5.0 MEDENT ([facility]) Harlan # 0.8 10 0.0-0.8 MEDENT ([facility]) Eos # 0.1 10 0.0-0.5 MEDENT ([facility]) Baso # 0.0 10 0.0-0.2 MEDENT ([facility]) ID Date Data Source [id number] 11/18/2020 11:38:00 AM EST MEDENT ([facility]) Name Value Range Interpretation Code Description Data Renée rce(s) Supporting Document(s) Phenytoin [Mass/volume] in Serum or Plasma 16.3 UG/ML 10.0-20.0 MEDENT ([facility]) ID Date Data Source LIPID PANEL (CARDIAC RISK) 11/18/2020 12:00:00 AM EST eCW1 ( [facility]) Name Value Range Interpretation Code Description Data Renée rce(s) Supporting Document(s) Cholesterol in HDL [Moles/volume] in Serum or Plasma 58 >40 [facility] ([facility]) Cholesterol [Moles/volume] in Serum or Plasma 206 <200 eCW1 ([facility]) Triglyceride [Mass/volume] in Serum or Plasma by calculation 229 <150 eCW1 ([facility]) 148 eCW1 ([facility]) 3.551 <5 eCW1 ([facility]) Cholesterol in LDL [Mass/volume] in Serum or Plasma by calculation 10 2 <100 eCW1 ([facility]) ID Date Data Source FREE T4 & TSH PANEL 11/18/2020 12:00:00 AM EST eCW1 (Count includes the [facility]) Name Value Range Interpretation Code Description Data Renée rce(s) Supporting Document(s) 2.210 0.358-3.740 eCW1 ([facility]) 0.69 0.76-1.46 eCW1 ([facility]) ID Date Data Source Comprehensive Metabolic Profile (CMP) 11/18/2020 12:00:00 AM EST eCW1 ([facility]) Name Value Range Interpretation Code Description Data Renée rce(s) Supporting Document(s) 13 7-18 eCW1 ([facility]) 131 70-100 eCW1 ([facility]) > 60.0 >60 eCW1 ([facility]) 136 136-145 eCW1 ([facility]) 0.73 0.70-1.30 eCW1 ([facility]) 4.3 3.5-5.1 eCW1 ([facility]) 101 98-107 eCW1 ([facility]) 9.5 8.5-10.1 eCW1 ([facility]) 18 7-37 eCW1 ([facility]) 30 21-32 eCW1 ([facility]) 0.3 0.2-1.0 eCW1 ([facility]) 139 45-117 eCW1 ([facility]) 49 12-78 eCW1 ([facility]) 4.2 3.2-5.2 eCW1 ([facility]) 8.5 6.4-8.2 eCW1 ([facility]) 1.0 eCW1 ([facility]) ID Date Data Source CBC with Differential 11/18/2020 12:00:00 AM EST eCW1 ([facility]) Name Value Range Interpretation Code Description Data Renée rce(s) Supporting Document(s) 47.6 42.0-52.0 eCW1 ([facility]) 9.1 4.0-10.0 eCW1 ([facility]) 15.6 13.5-17.5 eCW1 ([facility]) 5.06 4.30-6.10 eCW1 ([facility]) 30.8 27.0-33.0 eCW1 ([facility]) 32.8 32.0-36.5 eCW1 ([facility]) 94.1 80.0-96.0 eCW1 ([facility]) 11.8 11.5-14.5 eCW1 ([facility]) 58.5 36.0-66.0 eCW1 ([facility]) 9.5 0.0-5.0 eCW1 ([facility]) 292 150-450 eCW1 ([facility]) 30.6 24.0-44.0 eCW1 ([facility]) 0.4 0.0-1.0 eCW1 ([facility]) 0.8 0.0-3.0 eCW1 ([facility]) 5.3 1.5-8.5 eCW1 ([facility]) 2.8 1.5-5.0 eCW1 ([facility]) 0.0 0.0-0.2 eCW1 ([facility]) 0.9 0.0-0.8 eCW1 ([facility]) 0.1 0.0-0.5 eCW1 ([facility]) ID Date Data Source [id number] 11/05/2020 12:00:00 AM EST [facility] Name Value Range Interpretation Code Description Data Renée rce(s) Supporting Document(s) SARS-CoV-2 (COVID-19) RNA [Presence] in Respiratory specimen by SUKI with probe detection Not Detected [facility] This lab was ordered by [facility] and reported by [employer] ID Date Data Source [id number] 10/23/2020 01:50:00 PM EST MEDENT ([facility] ) Name Value Range Interpretation Code Description Data Renée rce(s) Supporting Document(s) Phenytoin [Mass/volume] in Serum or Plasma 14.7 UG/ML 10.0-20.0 MEDENT ([facility] ) Levetiracetam [Mass/volume] in Serum or Plasma 29.1 ug/mL 10.0-40.0 MEDENT ([facility] ) This test was developed and its performa nce characteristics determined by [facility]. It has not been cleared or approved by the Food and Drug Administration. Performed at: [address] [id number] [employer] Supervisor: Margaret Gomez MD, Phone: [phone] ID Date Data Source [id number] 07/06/2020 11:50:00 AM EDT MEDENT ([facility]) Name Value Range Interpretation Code Description Data Renée rce(s) Supporting Document(s) Phenytoin [Mass/volume] in Serum or Plasma 16.2 UG/ML 10.0-20.0 MEDENT ([facility] ) Procedure Social History Code Duration Value Status Description Data Source(s ) Smoking 05/03/2021 12:00:00 AM EDT Never Smoker completed Never S moker eCW1 ([facility]) Smoking 05/03/2021 12:00:00 AM EDT Never Smoker completed Never S moker eCW1 ([facility]) Smoking 11/18/2020 12:00:00 AM EST Never Smoker completed Never S moker eCW1 ([facility]) Smoking 11/18/2020 12:00:00 AM EST Never Smoker completed Never S moker eCW1 ([facility]) Smoking 11/18/2020 12:00:00 AM EST Never Smoker completed Never S moker eCW1 ([facility]) Smoking 11/18/2020 12:00:00 AM EST Never Smoker completed Never S moker eCW1 ([facility]) Smoking 11/18/2020 12:00:00 AM EST Never Smoker completed Never S moker eCW1 ([facility]) Smoking 11/18/2020 12:00:00 AM EST Never Smoker completed Never S moker eCW1 ([facility]) Smoking 08/24/2020 12:00:00 AM EST Never Smoker completed Never S moker eCW1 ([facility]) Vital Signs ID Date Data Source [id number] Name Value Range Interpretation Code Description Data Source(s) Body weight 192 [lb_av] 192 [lb_av] eCW1 ([facility]) Body height [in_i] eCW1 (Count includes the [facility]) Body mass index (BMI) [Ratio] 30.07 kg/m2 30.07 kg/m2 eCW1 ([facility]) Heart rate 90 /min 90 /min eCW1 ([facility]) Respiratory rate 18 /min 18 /min eCW1 ([facility]) Body temperature 96.5 [degF] 96.5 [degF] eCW1 ( [facility]) Systolic blood pressure 114 mm[Hg] 114 mm[Hg] e CW1 ([facility]) Diastolic blood pressure 77 mm[Hg] 77 mm[Hg] eCW1 ([facility]) Systolic blood pressure 110 mm[Hg] 110 mm[Hg] M EDENT ([facility] ) Diastolic blood pressure 80 mm[Hg] 80 mm[Hg] MEDENT ([facility] ) Heart rate 68 /min 68 /min MEDENT ([facility] ) Respiratory rate 16 /min 16 /min MEDENT ( [facility] ) Diastolic blood pressure 60 mm[Hg] 60 mm[Hg] MEDENT ([facility]) Respiratory rate 16 /min 16 /min MEDENT ( [facility] ) Systolic blood pressure 110 mm[Hg] 110 mm[Hg] M EDENT ([facility]) Heart rate 64 /min 64 /min MEDENT ([facility] ) Body temperature 97.0 [degF] 97.0 [degF] eCW1 ( [facility]) Body weight [lb_av] eCW1 ([facility] includes the [facility]) Body height [in_i] eCW1 (Count includes the [facility]) Body mass index (BMI) [Ratio] 30.07 kg/m2 30.07 kg/m2 eCW1 ([facility]) Heart rate 89 /min 89 /min eCW1 ([facility]) Respiratory rate 16 /min 16 /min eCW1 ([facility]) Systolic blood pressure 122 mm[Hg] 122 mm[Hg] e CW1 ([facility]) Diastolic blood pressure 88 mm[Hg] 88 mm[Hg] eCW1 ([facility]) Body weight 191 [lb_av] 191 [lb_av] eCW1 ([facility]) Body height [in_i] eCW1 (Count includes the [facility]) Body mass index (BMI) [Ratio] 29.91 kg/m2 29.91 kg/m2 eCW1 ([facility]) Heart rate 94 /min 94 /min eCW1 ([facility]) Respiratory rate 16 /min 16 /min eCW1 ([facility]) Body temperature 97.2 [degF] 97.2 [degF] eCW1 ( [facility]) Systolic blood pressure 118 mm[Hg] 118 mm[Hg] e CW1 ([facility]) Diastolic blood pressure 64 mm[Hg] 64 mm[Hg] eCW1 ([facility]) Systolic blood pressure 122 mm[Hg] 122 mm[Hg] M EDENT ([facility]) Diastolic blood pressure 80 mm[Hg] 80 mm[Hg] MEDENT ([facility] [facility] Heart rate 76 /min 76 /min [facility] ([facility]) Respiratory rate 16 /min 16 /min [facility] ( [facility] ) Patient Treatment Plan of Care Planned Activity Planned Date Details Description Data Source (s) Ofloxacin 3 MG/ML Ophthalmic Solution 08/24/2020 12:00:00 AM EST [id number] ([facility])
[2021-08-04 18:30] VITALS: BP 115/77
== END 2021-08-04 18:46 | disposition home or self-care (01) ==
LOC: M ED 14:12
DX: G40.909 Epilepsy, unspecified, not intractable, without status epilepticus (principal); Z88.0 Allergy status to penicillin; Z79.899 Other long term (current) drug therapy

== ENCOUNTER → 2021-08-23 | Outpatient (REF) | payer MEDICARE, MEDICAID | LOC: M LABDRAWC 15:39 | PROVIDERS: ATTEND Physician Assistant Medical | DX: G40.909 Epilepsy, unspecified, not intractable, without status epilepticus (principal) ==

== ENCOUNTER → 2021-09-14 | Outpatient (REF) | payer MEDICARE, MEDICAID | LOC: M LABDRAWC 15:47 | PROVIDERS: ATTEND Physician Assistant Medical | DX: R56.9 Unspecified convulsions (principal) ==

== ENCOUNTER → 2022-09-20 | Outpatient (CLI) | payer MEDICARE, MEDICAID ==
[2022-09-20 14:01] LABS: BASO % 0.3 % (0.0-1.0); EOS # 0.1 10^3/uL (0.0-0.5); EOS % 0.9 % (0.0-3.0); HEMATOCRIT 44.9 % (42.0-52.0); HEMOGLOBIN 14.9 g/dl (13.5-17.5); LYMPH # 3.1 10^3/uL (1.5-5.0); LYMPH % 34.3 % (24.0-44.0); MEAN CORPUSCULAR HEMOGLOBIN 31.4 pg (27.0-33.0); MEAN CORPUSCULAR HGB CONC 33.2 g/dl (32.0-36.5); MEAN CORPUSCULAR VOLUME 94.7 fl (80.0-96.0); MONO # 0.9 10^3/uL (0.0-0.8); MONO % 10.1 % (2.0-8.0); NEUTROPHILS # 4.8 10^3/uL (1.5-8.5); NEUTROPHILS % 54.2 % (36.0-66.0); PLATELET COUNT, AUTOMATED 294 10^3/uL (150-450); RED BLOOD COUNT 4.74 10^6/uL (4.30-6.10); WHITE BLOOD COUNT 8.9 10^3/uL (4.0-10.0)
[2022-09-20 14:17] LABS: PHENYTOIN (DILANTIN) 16.3 UG/ML (10.0-20.0)
[2022-09-20 14:18] LABS: ALBUMIN 3.9 G/DL (3.2-5.2); ALKALINE PHOSPHATASE 116 U/L (46-116); ALT/SGPT 34 U/L (7.0-40); AST/SGOT 23 U/L (<34); BILIRUBIN,TOTAL 0.3 MG/DL (0.3-1.2); BLOOD UREA NITROGEN 11 MG/DL (9-23); CALCIUM LEVEL 8.9 MG/DL (8.5-10.1); CARBON DIOXIDE LEVEL 28 MMOL/L (20-31); CHLORIDE LEVEL 101 MMOL/L (98-107); CREATININE FOR GFR 0.56 MG/DL (0.70-1.30); GLOMERULAR FILTRATION RATE > 60.0 (>60); GLUCOSE, FASTING 108 MG/DL (60-100); POTASSIUM SERUM 4.8 MMOL/L (3.5-5.1); SODIUM LEVEL 137 MMOL/L (136-145); TOTAL PROTEIN 7.9 G/DL (5.7-8.2)
== END ==
LOC: M LAB 13:06
PROVIDERS: ATTEND Psychiatry & Neurology Neurology
DX: R56.9 Unspecified convulsions (principal)

== ENCOUNTER → 2022-11-23 | Outpatient (REF) | payer MEDICARE, MEDICAID ==
[2022-11-23 18:03] LABS: PHENYTOIN (DILANTIN) 13.6 UG/ML (10.0-20.0)
[2022-11-23 18:09] LABS: ALKALINE PHOSPHATASE 114 U/L (46-116); ALT/SGPT 29 U/L (7.0-40); AST/SGOT 21 U/L (<34); BILIRUBIN,TOTAL 0.4 MG/DL (0.3-1.2); BLOOD UREA NITROGEN 11 MG/DL (9-23); CALCIUM LEVEL 9.3 MG/DL (8.5-10.1); CARBON DIOXIDE LEVEL 27 MMOL/L (20-31); CHLORIDE LEVEL 102 MMOL/L (98-107); CREATININE FOR GFR 0.53 MG/DL (0.70-1.30); GLOMERULAR FILTRATION RATE > 60.0 (>60); GLUCOSE, FASTING 125 MG/DL (60-100); POTASSIUM SERUM 4.3 MMOL/L (3.5-5.1); SODIUM LEVEL 137 MMOL/L (136-145); TOTAL PROTEIN 7.7 G/DL (5.7-8.2)
[2022-11-23 18:10] LABS: BASO % 0.5 % (0.0-1.0); EOS # 0.1 10^3/uL (0.0-0.5); EOS % 0.7 % (0.0-3.0); HEMATOCRIT 44.1 % (42.0-52.0); HEMOGLOBIN 14.7 g/dl (13.5-17.5); LYMPH # 2.7 10^3/uL (1.5-5.0); LYMPH % 36.2 % (24.0-44.0); MEAN CORPUSCULAR HEMOGLOBIN 31.8 pg (27.0-33.0); MEAN CORPUSCULAR HGB CONC 33.3 g/dl (32.0-36.5); MEAN CORPUSCULAR VOLUME 95.5 fl (80.0-96.0); MONO # 0.8 10^3/uL (0.0-0.8); MONO % 10.9 % (2.0-8.0); NEUTROPHILS # 3.9 10^3/uL (1.5-8.5); NEUTROPHILS % 51.6 % (36.0-66.0); PLATELET COUNT, AUTOMATED 291 10^3/uL (150-450); RED BLOOD COUNT 4.62 10^6/uL (4.30-6.10); WHITE BLOOD COUNT 7.5 10^3/uL (4.0-10.0)
== END ==
LOC: M LABDRAWC 16:52
PROVIDERS: ATTEND Psychiatry & Neurology Neurology
DX: R56.9 Unspecified convulsions (principal)

== ENCOUNTER 2022-12-30 12:41 | Emergency (ER) | payer MEDICARE, MEDICAID ==
[~2022-12-30] VITALS: Ht 162.6 cm; Wt 89.1 kg
[2022-12-30 16:13] LABS: BASO % 0.3 % (0.0-1.0); EOS % 0.2 % (0.0-3.0); HEMATOCRIT 43.2 % (42.0-52.0); HEMOGLOBIN 14.8 g/dl (13.5-17.5); LYMPH # 2.7 10^3/uL (1.5-5.0); LYMPH % 22.8 % (24.0-44.0); MEAN CORPUSCULAR HEMOGLOBIN 32.5 pg (27.0-33.0); MEAN CORPUSCULAR HGB CONC 34.3 g/dl (32.0-36.5); MEAN CORPUSCULAR VOLUME 94.7 fl (80.0-96.0); MONO # 0.9 10^3/uL (0.0-0.8); MONO % 7.5 % (2.0-8.0); NEUTROPHILS # 8.3 10^3/uL (1.5-8.5); NEUTROPHILS % 68.9 % (36.0-66.0); PLATELET COUNT, AUTOMATED 256 10^3/uL (150-450); RED BLOOD COUNT 4.56 10^6/uL (4.30-6.10)
[2022-12-30 17:41] LABS: BLOOD UREA NITROGEN 12 MG/DL (9-23); CALCIUM LEVEL 8.6 MG/DL (8.5-10.1); CARBON DIOXIDE LEVEL 26 MMOL/L (20-31); CHLORIDE LEVEL 104 MMOL/L (98-107); CREATININE FOR GFR 0.51 MG/DL (0.70-1.30); GLOMERULAR FILTRATION RATE > 60.0 (>60); GLUCOSE, FASTING 120 MG/DL (60-100); POTASSIUM SERUM 4.8 MMOL/L (3.5-5.1); SODIUM LEVEL 137 MMOL/L (136-145)
[2022-12-30] MEDS ORDERED: PHEN100C PO (18:35)
[2022-12-30 18:48] VITALS: BP 128/74
== END 2022-12-30 19:02 | disposition home or self-care (01) ==
LOC: EDBD 12:41 → M ED 12:41
DX: G40.909 Epilepsy, unspecified, not intractable, without status epilepticus (principal); R00.0 Tachycardia, unspecified; I44.4 Left anterior fascicular block; Z88.0 Allergy status to penicillin; Z79.83 Long term (current) use of bisphosphonates; Z79.899 Other long term (current) drug therapy

== ENCOUNTER → 2023-02-09 | Outpatient (REF) | payer MEDICARE, MEDICAID ==
[2023-02-09 18:22] LABS: BASO % 0.5 % (0.0-1.0); EOS % 0.5 % (0.0-3.0); HEMATOCRIT 47.6 % (42.0-52.0); HEMOGLOBIN 16.3 g/dl (13.5-17.5); LYMPH # 3.1 10^3/uL (1.5-5.0); LYMPH % 38.7 % (24.0-44.0); MEAN CORPUSCULAR HEMOGLOBIN 32.4 pg (27.0-33.0); MEAN CORPUSCULAR HGB CONC 34.2 g/dl (32.0-36.5); MEAN CORPUSCULAR VOLUME 94.6 fl (80.0-96.0); MONO # 0.7 10^3/uL (0.0-0.8); MONO % 8.3 % (2.0-8.0); NEUTROPHILS # 4.2 10^3/uL (1.5-8.5); PLATELET COUNT, AUTOMATED 285 10^3/uL (150-450); RED BLOOD COUNT 5.03 10^6/uL (4.30-6.10)
[2023-02-09 18:54] LABS: ALBUMIN 4.2 G/DL (3.2-5.2); ALKALINE PHOSPHATASE 119 U/L (46-116); ALT/SGPT 32 U/L (7.0-40); AST/SGOT 21 U/L (<34); BILIRUBIN,TOTAL 0.5 MG/DL (0.3-1.2); BLOOD UREA NITROGEN 10 MG/DL (9-23); CALCIUM LEVEL 9.3 MG/DL (8.5-10.1); CARBON DIOXIDE LEVEL 27 MMOL/L (20-31); CHLORIDE LEVEL 101 MMOL/L (98-107); CREATININE FOR GFR 0.57 MG/DL (0.70-1.30); GLOMERULAR FILTRATION RATE > 60.0 (>60); GLUCOSE, FASTING 113 MG/DL (60-100); POTASSIUM SERUM 4.4 MMOL/L (3.5-5.1); SODIUM LEVEL 139 MMOL/L (136-145); TOTAL PROTEIN 8.4 G/DL (5.7-8.2)
== END ==
LOC: M LABDRAWC 18:06
PROVIDERS: ATTEND Psychiatry & Neurology Neurology
DX: R56.9 Unspecified convulsions (principal)

== ENCOUNTER → 2024-02-21 | Outpatient (REF) | payer MEDICARE, MEDICAID | LOC: M SFHCCLAY 11:41 | PROVIDERS: ATTEND Nurse Practitioner Family | DX: R05.1 Acute cough (principal) ==

== ENCOUNTER → 2024-03-25 | Outpatient (REF) | payer MEDICARE, MEDICAID ==
[2024-03-25 17:41] LABS: BASO % 0.4 % (0.0-1.0); EOS # 0.1 10^3/uL (0.0-0.5); EOS % 1.2 % (0.0-3.0); HEMATOCRIT 44.6 % (42.0-52.0); HEMOGLOBIN 14.9 g/dl (13.5-17.5); LYMPH # 3.2 10^3/uL (1.5-5.0); LYMPH % 41.3 % (24.0-44.0); MEAN CORPUSCULAR HEMOGLOBIN 31.9 pg (27.0-33.0); MEAN CORPUSCULAR HGB CONC 33.4 g/dl (32.0-36.5); MEAN CORPUSCULAR VOLUME 95.5 fl (80.0-96.0); MONO # 0.6 10^3/uL (0.0-0.8); MONO % 8.1 % (2.0-8.0); NEUTROPHILS # 3.7 10^3/uL (1.5-8.5); NEUTROPHILS % 48.7 % (36.0-66.0); PLATELET COUNT, AUTOMATED 256 10^3/uL (150-450); RED BLOOD COUNT 4.67 10^6/uL (4.30-6.10); WHITE BLOOD COUNT 7.6 10^3/uL (4.0-10.0)
[2024-03-25 18:12] LABS: ALKALINE PHOSPHATASE 112 U/L (46-116); ALT/SGPT 33 U/L (7.0-40); AST/SGOT 14 U/L (<34); BILIRUBIN,TOTAL 0.4 MG/DL (0.3-1.2); BLOOD UREA NITROGEN 10 MG/DL (9-23); CALCIUM LEVEL 8.9 MG/DL (8.5-10.1); CARBON DIOXIDE LEVEL 29 MMOL/L (20-31); CHLORIDE LEVEL 101 MMOL/L (98-107); CHOLESTEROL LEVEL 197 MG/DL (<200); CHOLESTEROL RISK RATIO 3.13 (<5); CREATININE FOR GFR 0.58 MG/DL (0.70-1.30); GLOMERULAR FILTRATION RATE > 60.0 (>60); GLUCOSE, FASTING 119 MG/DL (60-100); HDL CHOLESTEROL 62.8 MG/DL (>40); LDL CHOLESTEROL 109.8 MG/DL (<100); NON-HDL-C 134.2 MG/DL; POTASSIUM SERUM 4.4 MMOL/L (3.5-5.1); SODIUM LEVEL 136 MMOL/L (136-145); TOTAL PROTEIN 7.5 G/DL (5.7-8.2); TRIGLYCERIDES LEVEL 122 MG/DL (<150)
[2024-03-25 18:14] LABS: FREE T4 0.81 NG/DL (0.89-1.76); PHENYTOIN (DILANTIN) 29.8 UG/ML (10.0-20.0); THYROID STIMULATING HORMONE 1.752 uIU/ML (0.55-4.78)
== END ==
LOC: M SFHCCLAY 11:48
PROVIDERS: ATTEND Nurse Practitioner Family
DX: G40.909 Epilepsy, unspecified, not intractable, without status epilepticus (principal); F84.0 Autistic disorder; Z13.220 Encounter for screening for lipoid disorders; Z79.899 Other long term (current) drug therapy

== ENCOUNTER → 2024-03-29 | Outpatient (REF) | payer MEDICARE, MEDICAID ==
[2024-03-29 12:44] LABS: BASO % 0.4 % (0.0-1.0); EOS # 0.1 10^3/uL (0.0-0.5); EOS % 1.3 % (0.0-3.0); HEMATOCRIT 44.9 % (42.0-52.0); HEMOGLOBIN 14.9 g/dl (13.5-17.5); LYMPH # 2.8 10^3/uL (1.5-5.0); LYMPH % 38.3 % (24.0-44.0); MEAN CORPUSCULAR HEMOGLOBIN 32.1 pg (27.0-33.0); MEAN CORPUSCULAR HGB CONC 33.2 g/dl (32.0-36.5); MEAN CORPUSCULAR VOLUME 96.8 fl (80.0-96.0); MONO # 0.6 10^3/uL (0.0-0.8); MONO % 8.1 % (2.0-8.0); NEUTROPHILS # 3.7 10^3/uL (1.5-8.5); NEUTROPHILS % 51.6 % (36.0-66.0); PLATELET COUNT, AUTOMATED 250 10^3/uL (150-450); RED BLOOD COUNT 4.64 10^6/uL (4.30-6.10); WHITE BLOOD COUNT 7.2 10^3/uL (4.0-10.0)
[2024-03-29 13:04] LABS: ALBUMIN 3.9 G/DL (3.2-5.2); ALKALINE PHOSPHATASE 110 U/L (46-116); ALT/SGPT 36 U/L (7.0-40); AST/SGOT 17 U/L (<34); BILIRUBIN,TOTAL 0.4 MG/DL (0.3-1.2); BLOOD UREA NITROGEN 13 MG/DL (9-23); CALCIUM LEVEL 8.5 MG/DL (8.5-10.1); CARBON DIOXIDE LEVEL 30 MMOL/L (20-31); CHLORIDE LEVEL 102 MMOL/L (98-107); CREATININE FOR GFR 0.55 MG/DL (0.70-1.30); GLOMERULAR FILTRATION RATE > 60.0 (>60); GLUCOSE, FASTING 134 MG/DL (60-100); POTASSIUM SERUM 4.4 MMOL/L (3.5-5.1); SODIUM LEVEL 137 MMOL/L (136-145); TOTAL PROTEIN 7.4 G/DL (5.7-8.2)
[2024-03-29 13:05] LABS: PHENYTOIN (DILANTIN) 26.4 UG/ML (10.0-20.0)
== END ==
LOC: M LABDRAWC 11:30
PROVIDERS: ATTEND Psychiatry & Neurology Neurology
DX: G40.89 Other seizures (principal)